=== PATIENT | female | born 1965 | race Caucasian/White ===

== ENCOUNTER → 2017-08-13 09:47 | Outpatient (CLI) | payer MEDICAID, SELFPAY | PROVIDERS: Family Provider Internal Medicine; PCP Internal Medicine; Visit Provider Anesthesiology | DX: Z53.9 Procedure and treatment not carried out, unspecified reason (principal) ==

== ENCOUNTER 2017-08-13 13:00 | Outpatient (RCR) | payer MEDICAID, SELFPAY ==
--- NOTE | 2017-08-07 17:40 | HP.PTEVAL_ITS ---
Patient's Visit Information GABRIEL SMITH is a 51 year old F referred to Physical Therapy by MD LANA Lopez with a diagnosis of LOW BACK PAIN. SACROCOCCYGEAL DISORDER. SACROILIAC JOINT PAIN.. Date of Evaluation: 08/07/17 Physical Therapist: Cristy Lara - Visit Plan Frequency: 2-3x /Week Duration: 4-6 Weeks Plan: POSTURE CORRECTION/STRENGTHENING, INSTRUCTION IN APPROPRIATE BODY MECHANICS AND ACTIVITY MODIFICATIONS. DLS STARTING WITH A NEUTRAL SPINE PROGRESSING ROM TOLERATED. NOEMY LE ROM, STRETCHING AND STRENGTHENING. HEP INSTRUCTION. - Subjective Subjective: Work/Leisure: UNEMPLOYEED. Disability: APPLYING. Present symptoms: NOEMY LOW BACK PAIN, RIGHT GROIN, RIGHT THIGH, RIGHT LEG. INTERMITTENT RIGHT FOOT TINGLING. Present since: Jul. Pain Scale: WORST 8/10, LEAST 4/10. Currently: 5/10. Commenced as a result of: FALL. FELL OFF THE SIDEWALK AT HOME. Symptoms at onset: LOW BACK. Worse: GOING UP AND DOWN STEPS, BENDING, LIFTING, WEIGHT BEARING ON RIGHT LE, BUMPING ANY PART OF HER BODY. Better: DISTRACTING YOURSELF. Disturbed sleep: YES. Previous history/Previous treatment: NO SIGNIFICANT HISTORY PROBLEMS PRIOR TO THE FALL. NO BACK SURGERY. NO BACK INJECTIONS. Coughing/sneezing/straining: POSITIVE. Gait: USING A WALKER SINCE THE DAY OF THE FALL. NO AD PRIOR. Difficulty initiating urinatin: NOT CURRENTLY. Accidents: HISTORY OF VARIOUS FALLS AND CONCUSSIONS. Unexplained weight loss: NO. Imaging: LUMBAR X-RAYS - NO FRACTURES PER PATIENT REPORT. PMH: MANIC DEPRESSIVE DISORDER, DEPRESSION, IRON DEFICIENCY ANEMIA, HYPOTHYROIDISM, B12 DEFICIENCY, C23 DISC HERNIATION, 2017 RIGHT SHOULDER SURGERY WITH UP TO 7/10 RIGHT SHOULDER PAIN, FIBROMYALGIA, IDDM. HAND DEFORMITIES. OTHER: PATIENT HAS A PAIN MGMT DOCTOR AND THEY ARE SEEKING APPROVAL FOR AN INJECTION. - Objective Sitting Posture: POOR. Standing Posture: POOR. Lordosis: REDUCED. Lateral shift: NO. Relevant shift: N/A. Active Correction of posture: WORSE. Other Observations: INDEP. Motor deficit: LLE STRENGTH 5/5 WITH MMT EXCEPT HIP 4/5. RIGHT LE: HIP 4-/5, KNEE 5/5, ANKLE 5/5. Sensory deficit: DECREASED LIGHT TOUCH SENSATION RIGHT LATERAL DISTAL LEG. ROM deficit: TIGHT NOEMY ANKLE GASTROC SOLEUS COMPLEX'S. TIGHT NOEMY HIP FLEXORS. Reflexes: 2/2 NOEMY LE'S. Dural Signs: POSITIVE RIGHT AND NEGATIVE LLE DURAL SIGNS. Lumbar mvmt loss: flex - NIL. ext - MOD. R SG - MIN. L SG - MIN. Core strength: POOR. Palpation: TENDERNESS WITH PALPATION OF THE LOWER LUMBAR SPINE, OVER THE SACRUM AND SI JOINT REGIONS. PATIENT IS RELUCTANT TO DO AQUATIC THERAPY. - Goals Goal 1:: DECREASE C/O BACK AND LE SX'S Goal Time Frame: 4-6 Weeks Goal 2:: IMPROVE PERSONAL CARE, LIFTING, WALKING, SITTING, STANDING, SLEEPING, SOCIAL LIFE, TRAVEL AND HOMEMAKING FUNCTION. Goal Time Frame: 4-6 Weeks Goal 3:: INSTRUCT IN PROPHYLAXIS Goal Time Frame: 4-6 Weeks - Rehabilitation Potential Rehabilitation Potential: Fair - Anticipated Interventions Patient/Client Instruction: Educate patient on: Condition, Plan of Care, Risk Factors, Benefits of Fitness Program For the Purpose of:: To improve self management Therapeutic Exercise to Include: Strength training, Body mechanics, Postural training, Flexibilty training, Gait and locomotor training, Dynamic Lumbar Stabilization For the Purpose of:: To improve ability of physical actions for home/community/ work/leisure, To improve gait and locomotor functions, To improve tolerance to ADL's TENS: Yes IF ES: Yes Cryotherapy (ice pack, ice massage): Yes Thermo therapy (hot pack): Yes Ultrasound (thermal/non thermal): Yes For the Purpose of:: To decrease pain, To decrease swelling/inflammation Thank you for the opportunity to evaluate your patient. For Medicare and Medicare HMO plans, please review the plan of care and approve it. It will need to be FAXED BACK to us at [phone] for Medicare purposes. Please let me know if there are questions or concerns regarding this plan of care. Physician Signature: Date:
--- NOTE | 2018-01-03 15:00 | HP.PTDCNRP_ITS ---
HP - Discharge Summary (1) - Patient Information GABRIEL SMITH was seen in my office for initial evaluation on 08/07/17. The following Plan of Care was established for this patient: Initial Frequency: 2-3x /Week Initial Duration: 4-6 Weeks - Anticipated Interventions Patient/Client Instruction: Educate patient on: Condition, Plan of Care, Risk Factors, Benefits of Fitness Program For the Purpose of:: To improve self management Therapeutic Exercise to Include: Strength training, Body mechanics, Postural training, Flexibilty training, Gait and locomotor training, Dynamic Lumbar Stabilization For the Purpose of:: To improve ability of physical actions for home/community/ work/leisure, To improve gait and locomotor functions, To improve tolerance to ADL's TENS: Yes IF ES: Yes Cryotherapy (ice pack, ice massage): Yes Thermo therapy (hot pack): Yes Ultrasound (thermal/non thermal): Yes For the Purpose of:: To decrease pain, To decrease swelling/inflammation This patient was last seen in our office . Pertinent comments regarding their Physical therapy will appear below: This patient has not returned to Physical Therapy and is appropriate to return to MD for further follow-up as needed. At this point I will be discontinuing this patient from physical therapy. I would be happy to see this patient again in the future if found appropriate by the physician. Thank you! Cristy Lara
== END 2017-08-13 19:00 | disposition home or self-care (01) ==
LOC: PT 13:00
PROVIDERS: Family Provider Internal Medicine; PCP Internal Medicine; Visit Provider Internal Medicine
DX: M54.5 Low back pain (principal); M53.3 Sacrococcygeal disorders, not elsewhere classified
CPT/HCPCS: 97014; 97035; 97110; 97162; 97530; G0283

== ENCOUNTER 2017-09-13 14:34 | Day surgery (SDC) | payer MEDICAID, SELFPAY ==
[2017-09-13] VITALS (7 sets, daily range): BP systolic 147–182; BP diastolic 78–96; PULSE 75–86; RESP 16; TEMP 36.3–36.8; O2SAT 98–100; BMI 33.7
[2017-09-13 15:21] LABS: Bedside Glucose 287 mg/dL (70-110)
--- NOTE | 2017-09-13 16:30 | RAD_ITS ---
STUDY: X-RAY - LUMBAR SPINE REASON FOR EXAM: Female, 51 years old. Cervical epidural. TECHNIQUE: Lateral coned-down view(s) of the lumbar spine was obtained. COMPARISON: None FINDINGS: Intraoperative imaging was provided for C4-C5 epidural block. RAD/Lumbar Spine 2 or 3 Views IMPRESSION: Intraoperative imaging. Electronically Signed: Marcial Valdez MD at 14:50 EST Tel [phone], Service support ,
[2017-09-13] MEDS: Triamcinolone Acetonide 40 MG/ML Vial (16:47)
--- NOTE | 2017-09-13 17:05 | PCM.DC ---
- Discharge Diagnoses Current Active Problems: Cervical spine pain due to cervical DDD Reason(s) for Visit for Discharge Instructions: Cervical neck pain You will use the following diet at home:: No restrictions Discharge Activity: Return to Normal Activity May resume sexual activity in: No Restrictions Call your doctor if your incision/area has: Increased Pain/ Swelling, Increased Redness Call your doctor if you observe: Numbness or Tingling Suture Line Care: Avoid Pulling/Pushing, Avoid Pinching/Bending Cleanse incision/area with: Soap & Water Allergies/Adverse Reactions: Allergies chlorhexidine Allergy (Verified 09/09/17 13:34) Rash pine tree sap Allergy (Uncoded 09/09/17 13:34) Unknown Medications to take at Discharge Cetirizine HCl [Zyrtec] 10 mg PO DAILY PRN 05/26/15 Gabapentin [Neurontin] 600 mg PO TID 05/26/15 Hydrocodone Bitart/Apap 5-325 [[place] 5/325] 1 - 2 tab PO Q4H PRN PRN #12 tab 05/26/15 Insulin Glargine [Lantus (BKC)] 22 units SC QHS 05/26/15 Insulin Lispro [Humalog] 8 unit SC TID 05/26/15 tramadol 50 mg tablet 50 mg PO TID tab 07/25/17 Cyanocobalamin (Vitamin B-12) [Vitamin B-12] 1,000 mcg PO DAILY 09/09/17 Docusate Sodium [Colace] 100 mg PO DAILY PRN PRN 09/09/17 Duloxetine HCl 60 mg PO QHS 09/09/17 Levothyroxine [Synthroid] 125 mcg PO DAILY 09/09/17 Primary Care Physician: Kristy Moreria MD [Primary Care Provider] - Please Follow Up With: Rick Willson MD
--- NOTE | 2017-09-13 17:22 | OP.PCM_ITS ---
Problem List (1) Other cervical disc degeneration at C4-C5 level Status: Acute (2) Other cervical disc degeneration at C4-C5 level Status: Acute (3) Disorder of intervertebral disc at C4-C5 level with radiculopathy Status: Acute (4) Disorder of intervertebral disc at C4-C5 level with radiculopathy Status: Acute (5) Radiculopathy of cervical region Status: Acute (6) Radiculopathy of cervical region Status: Acute Report of Operation Date of Procedure: 09/13/17 Pre-Operative Diagnosis: Cervical Degenerative disc disease and cevrical radiculopathy Post-Operative Diagnosis: same Surgery/Procedure Performed:: Cervical epidural steroid injection under fluoroscopy guidance at C4-5 level Description of Surgical Findings:: Under sterile conditions. Patient placed in the prone position, pressure points were padded, patient was ready from the nursing and the anesthesia team. After identification of the side and the target area for the block under guided fluoroscopy, the entry site was marked with marking pen. I used Betadine for sterilization of the skin, sterile draping were applied. Using 25-gauge needle to infiltrate the skin with local anesthesia using preservative-free lidocaine 0.5% injected 5 mL at site of entry. Using guided fluoroscopy, accessed the the posterior Cervical epidural space using 20-gauge Touhy needles under midline approach, accessed the site was assisted with lateral fluoroscopy, followed by using [id number] technique using preservative-free normal saline, negative aspiration of CSF and blood. Injected contrast solution [1.5] mL under live fluoroscopy which showed good spread of the contrast to the posterior epidural space and to the targeted area of the injection at[ C 4-5/ extended to C3-4 and down to C7-T1 area]. Injected [3] mL of mixture of preservative-free lidocaine 0.25 % and PF Normal saline and Kenalog [80] mg for the procedure which showed appropriate spread in the epidural space. [place] was removed, pressure dressing were applied. Patient tolerated the procedure well and was taken to the recovery. Type of Anesthesia:: Local MAC Special Medications: Kenalog , Lidocaine , Normal saline - Complications none
== END 2017-09-13 18:23 | disposition home or self-care (01) ==
LOC: SDC 14:34 → AC 14:37
PROVIDERS: Family Provider Internal Medicine; PCP Internal Medicine; Visit Provider Anesthesiology
PROC: 3E0S3BZ Introduction of Anesthetic Agent into Epidural Space, Percutaneous Approach (ICD-10-PCS; CPT 62320; principal; 2017-09-13 16:25)
DX: M50.121 Cervical disc disorder at C4-C5 level with radiculopathy (principal); M50.33 Other cervical disc degeneration, cervicothoracic region; M54.2 Cervicalgia; M75.41 Impingement syndrome of right shoulder; M25.511 Pain in right shoulder; M47.816 Spondylosis without myelopathy or radiculopathy, lumbar region; M54.40 Lumbago with sciatica, unspecified side; M51.36 Other intervertebral disc degeneration, lumbar region; M46.1 Sacroiliitis, not elsewhere classified; G89.4 Chronic pain syndrome; G56.00 Carpal tunnel syndrome, unspecified upper limb; M79.1 Myalgia; M19.019 Primary osteoarthritis, unspecified shoulder; E11.42 Type 2 diabetes mellitus with diabetic polyneuropathy; G63 Polyneuropathy in diseases classified elsewhere; I10 Essential (primary) hypertension; G43.909 Migraine, unspecified, not intractable, without status migrainosus; I34.1 Nonrheumatic mitral (valve) prolapse; S33.6XXA Sprain of sacroiliac joint, initial encounter; D50.9 Iron deficiency anemia, unspecified; D51.0 Vitamin B12 deficiency anemia due to intrinsic factor deficiency; E78.00 Pure hypercholesterolemia, unspecified; F41.9 Anxiety disorder, unspecified; F32.9 Major depressive disorder, single episode, unspecified; E06.9 Thyroiditis, unspecified; Z79.4 Long term (current) use of insulin; Z79.891 Long term (current) use of opiate analgesic; Z79.899 Other long term (current) drug therapy
CPT/HCPCS: 64490; 72100; 82962; J7120; J3490

== ENCOUNTER → 2017-12-06 17:16 | Outpatient (CLI) | payer MEDICAID, SELFPAY ==
[2017-12-06 18:24] LABS: Amphetamine Urine VISTA NEGATIVE (<1000 ng/mL); Barbiturate Urine VISTA NEGATIVE (< 200 ng/mL); Benzodiazepine Urine VISTA NEGATIVE (< 200 ng/mL); Cocaine Urine VISTA NEGATIVE (< 300 ng/mL); Ecstacy Urine VISTA NEGATIVE (< 500 ng/mL); Methadone Urine VISTA NEGATIVE (< 300 ng/mL); PCP Urine VISTA NEGATIVE (< 25 ng/mL); THC Urine VISTA NEGATIVE (< 50 ng/mL); Vista UDS pH Range 6
== END ==
PROVIDERS: Family Provider Internal Medicine; PCP Internal Medicine; Visit Provider Anesthesiology
DX: F11.20 Opioid dependence, uncomplicated (principal)
CPT/HCPCS: 80307

== ENCOUNTER → 2018-01-13 10:07 | Outpatient (CLI) | payer MEDICAID, SELFPAY ==
--- NOTE | 2018-01-13 10:37 | RAD_ITS ---
STUDY: X-RAY - LUMBAR SPINE REASON FOR EXAM: Female, 52 years old. Recent fall. Left lower back pain and pelvic pain. Now back pain radiating into the legs. TECHNIQUE: 3 view(s) of the lumbar spine were obtained. COMPARISON: Lumbar spine, February 15, 2017 FINDINGS: Normal lumbar lordosis. Very mild dextro scoliosis of the lumbar spine with convexity at L2-3. This appears unchanged. There is a normal alignment of the vertebrae. There is multilevel endplate spondylosis of the lumbar vertebrae. There is multi-level degenerative disc disease with multi-level disc space narrowing. There is no evidence of acute fracture or loss of vertebral axial height. There is atherosclerotic calcification of the abdominal aorta without a demonstrated aneurysm. RAD/Lumbar Spine 2 or 3 Views IMPRESSION: Stable degenerative changes of the lumbar spine. Electronically Signed: Emre Berry DO at 17:49 EDT Tel [phone], Service support ,
== END ==
PROVIDERS: Family Provider Internal Medicine; PCP Internal Medicine; Visit Provider Internal Medicine
DX: M54.5 Low back pain (principal); R10.2 Pelvic and perineal pain
CPT/HCPCS: 72100

== ENCOUNTER → 2018-01-23 17:03 | Outpatient (CLI) | payer MEDICAID, SELFPAY ==
--- NOTE | 2018-01-23 17:11 | RAD_ITS ---
STUDY: X-RAY - LEFT HAND REASON FOR EXAM: Female, 52 years old. Palmar fascial fibromatosis of fifth digit TECHNIQUE: 3 view(s) of the hand. COMPARISON: None. FINDINGS: Normal radiocarpal articulation. Normal distal radioulnar joint. Normal visualized carpal bones. Normal carpal articulations Normal carpometacarpal articulation of the thumb. Normal second through fifth carpometacarpal joints. Normal metacarpi. Normal metacarpophalangeal joint of the thumb. Normal interphalangeal joint of the thumb. Normal proximal and distal phalanges of the thumb. Normal metacarpophalangeal joints of the second through fifth fingers. Flexion at the proximal interphalangeal joint of fifth finger. Small cyst at the base of the middle phalanx of the second finger. The soft tissue structures are unremarkable. RAD/Hand Min 3 Views IMPRESSION: Flexion at the proximal interphalangeal joint of fifth finger. Small cyst at the base of the middle phalanx of the second finger. Electronically Signed: Donny Tavares DO at 21:58 EDT Tel [phone], Service support ,
== END ==
PROVIDERS: Family Provider Internal Medicine; PCP Internal Medicine; Visit Provider Surgery
DX: M72.0 Palmar fascial fibromatosis [Dupuytren] (principal)
CPT/HCPCS: 73130

== ENCOUNTER → 2018-02-14 13:39 | Outpatient (CLI) | payer MEDICAID, SELFPAY ==
[2018-02-14 15:57] LABS: Absolute Lymphocyte Count 2.14 X10^3/ul (0.83-4.51); Absolute Neutrophil Count 2.4 X10^3/uL (2.0-7.7); Basophil# 0.02 X10^3/uL; Basophil% 0.4 % (0-1); Eosinophil# 0.14 X10^3/uL; Eosinophils% 2.7 % (0-5); Hematocrit 38.2 % (37-47); Hemoglobin 12.4 g/dl (12.0-15.0); Lymphocyte # 2.14 X10^3/ul (4.0); Lymphocyte % 41.7 % (19-41); Mean Corp Hgb Conc 32.5 g/gl (32-36); Mean Corpuscular Volume 86.2 fL (81-99); Mean Platelet Vol. 10.5 fl (6.2-12.0); Monocyte# 0.45 X10^3/uL; Monocyte% 8.8 % (0-10); Neutrophil # 2.37 X10^3/uL (2.7-7.7); Neutrophil % 46.2 % (47-70); Platelet Count 294 K/mm3 (150-450); RBC Distribution Width CV 13.5 % (11.6-14.6); RBC Distribution Width SD 42.8 fl (35.1-43.9); Red Blood Count 4.43 M/mm3 (4.2-5.4); White Blood Count 5.1 K/mm3 (4.4-11.0)
[2018-02-14 16:01] LABS: POSITIVE COUNT NO; POSITIVE DIFFERENTIAL NO; POSITIVE MORPHOLOGY NO
[2018-02-14 16:26] LABS: ALB/GLOB Ratio 0.8 RATIO (0.9-2.4); AST(SGOT) 36 U/L (15-37); Alanine Aminotransfer ALT/SGPT 38 U/L (13-56); Albumin, Serum 3.3 g/dL (3.2-5.0); Alkaline Phosphatase 161 U/L (45-117); Anion Gap 9 (5-15); BUN 13 mg/dL (7-18); BUN/Creat Ratio 13.9 RATIO (10-20); Calcium,Total 8.9 mg/dL (8.5-10.1); Chloride 102 mmol/L (98-107); Cholesterol 410 mg/dL (200); Creatinine, Serum 0.94 mg/dL (0.55-1.02); EST Glomerular Filtration Rate 66 mL/min (>60); Est Glom Filt Rate - Afr Amer 80 mL/min (>60); Globulin 3.9 g/dL (2.2-4.2); Glucose 113 mg/dL (74-106); High Density Lipoprotein 52 mg/dL; Potassium 4.2 mmol/L (3.5-5.1); Protein, Total 7.2 g/dL (6.4-8.2); Sodium Level 140 mmol/L (136-145); T4 Free Direct 1.23 ng/dL (0.76-1.46); Thyroid Stim Hormone (TSH) 1.34 uIU/mL (0.358-3.74); Triglycerides 149 mg/dL; Very Low Density Lipoprotein 30 mg/dL (5-40)
[2018-02-14 16:31] LABS: Microalbumin:Creatinine Ratio 11.6 mg/g CRE (<30 mg/g CRE)
== END ==
PROVIDERS: Family Provider Internal Medicine; PCP Internal Medicine; Visit Provider Internal Medicine
DX: E78.5 Hyperlipidemia, unspecified (principal); E53.8 Deficiency of other specified B group vitamins; E10.9 Type 1 diabetes mellitus without complications; E03.9 Hypothyroidism, unspecified
CPT/HCPCS: 36415; 80053; 80061; 82043; 82570; 83036; 84439; 84443; 85025

== ENCOUNTER → 2018-05-09 17:22 | Outpatient (CLI) | payer MEDICAID, SELFPAY ==
[2018-05-09 18:17] LABS: Vitamin B12 410 pg/mL (211-911); Vitamin D,25 Hydroxy 18.1 ng/mL (29.95-100.01)
== END ==
PROVIDERS: Family Provider Internal Medicine; PCP Internal Medicine; Referring Provider Anesthesiology; Visit Provider Anesthesiology
DX: M79.10 Myalgia, unspecified site (principal)
CPT/HCPCS: 36415; 82306; 82607

== ENCOUNTER → 2018-10-03 13:47 | Outpatient (CLI) | payer MEDICAID, SELFPAY ==
[2018-04-15 10:21] VITALS: BMI 32.5
[2018-10-03 14:38] LABS: Amphetamine Urine VISTA NEGATIVE (<1000 ng/mL); Barbiturate Urine VISTA NEGATIVE (< 200 ng/mL); Benzodiazepine Urine VISTA NEGATIVE (< 200 ng/mL); Cocaine Urine VISTA NEGATIVE (< 300 ng/mL); Ecstacy Urine VISTA NEGATIVE (< 500 ng/mL); Methadone Urine VISTA NEGATIVE (< 300 ng/mL); PCP Urine VISTA NEGATIVE (< 25 ng/mL); THC Urine VISTA POSITIVE (< 50 ng/mL); Vista UDS pH Range 6
== END ==
PROVIDERS: Family Provider Internal Medicine; PCP Internal Medicine; Referring Provider Anesthesiology; Visit Provider Anesthesiology
DX: F11.20 Opioid dependence, uncomplicated (principal)
CPT/HCPCS: 80307

== ENCOUNTER → 2019-01-09 | Outpatient (CLI) | payer MEDICAID, SELFPAY ==
[2018-04-15 10:21] VITALS: BMI 32.5
[2019-01-09 13:32] LABS: Amphetamine Urine VISTA NEGATIVE (<1000 ng/mL); Barbiturate Urine VISTA NEGATIVE (< 200 ng/mL); Benzodiazepine Urine VISTA NEGATIVE (< 200 ng/mL); Cocaine Urine VISTA NEGATIVE (< 300 ng/mL); Ecstacy Urine VISTA NEGATIVE (< 500 ng/mL); Methadone Urine VISTA NEGATIVE (< 300 ng/mL); PCP Urine VISTA NEGATIVE (< 25 ng/mL); THC Urine VISTA NEGATIVE (< 50 ng/mL); Vista UDS pH Range 5
== END | disposition home or self-care (01) ==
LOC: LAB 12:58
PROVIDERS: Family Provider Internal Medicine; PCP Internal Medicine; Referring Provider Anesthesiology; Visit Provider Anesthesiology
DX: F11.20 Opioid dependence, uncomplicated (principal)
CPT/HCPCS: 80307

== ENCOUNTER → 2019-08-21 15:55 | Outpatient (CLI) | payer MEDICARE, SELFPAY ==
[2019-04-02 11:47] VITALS: BMI 32.5
[2019-08-21 17:05] LABS: Amphetamine Urine VISTA NEGATIVE (<1000 ng/mL); Barbiturate Urine VISTA NEGATIVE (< 200 ng/mL); Benzodiazepine Urine VISTA NEGATIVE (< 200 ng/mL); Cocaine Urine VISTA NEGATIVE (< 300 ng/mL); Ecstacy Urine VISTA NEGATIVE (< 500 ng/mL); Methadone Urine VISTA NEGATIVE (< 300 ng/mL); PCP Urine VISTA NEGATIVE (< 25 ng/mL); THC Urine VISTA NEGATIVE (< 50 ng/mL); Vista UDS pH Range 5
== END ==
PROVIDERS: PCP Internal Medicine; Referring Provider Anesthesiology; Visit Provider Anesthesiology
DX: F11.20 Opioid dependence, uncomplicated (principal)
CPT/HCPCS: 80307

== ENCOUNTER → 2020-05-27 17:52 | Outpatient (CLI) | payer MEDICARE, SELFPAY ==
[2019-04-02 11:47] VITALS: BMI 32.5
[2020-05-27 19:06] LABS: Amphetamine Urine VISTA NEGATIVE (<1000 ng/mL); Barbiturate Urine VISTA NEGATIVE (< 200 ng/mL); Benzodiazepine Urine VISTA NEGATIVE (< 200 ng/mL); Cocaine Urine VISTA NEGATIVE (< 300 ng/mL); Ecstacy Urine VISTA NEGATIVE (< 500 ng/mL); Methadone Urine VISTA NEGATIVE (< 300 ng/mL); PCP Urine VISTA NEGATIVE (< 25 ng/mL); THC Urine VISTA NEGATIVE (< 50 ng/mL); Vista UDS pH Range 6
== END ==
PROVIDERS: PCP Internal Medicine; Referring Provider Anesthesiology; Visit Provider Anesthesiology
DX: F11.20 Opioid dependence, uncomplicated (principal)
CPT/HCPCS: 80307

== ENCOUNTER → 2021-12-25 | Outpatient (CLI) | payer MEDICARE, SELFPAY ==
[2021-12-25 17:42] LABS: Amphetamine Urine VISTA NEGATIVE (<1000 ng/mL); Barbiturate Urine VISTA NEGATIVE (< 200 ng/mL); Benzodiazepine Urine VISTA NEGATIVE (< 200 ng/mL); Cocaine Urine VISTA NEGATIVE (< 300 ng/mL); Ecstacy Urine VISTA POSITIVE (< 500 ng/mL); Methadone Urine VISTA NEGATIVE (< 300 ng/mL); PCP Urine VISTA NEGATIVE (< 25 ng/mL); THC Urine VISTA NEGATIVE (< 50 ng/mL); Vista UDS pH Range 5
== END | disposition home or self-care (01) ==
PROVIDERS: PCP Internal Medicine; Referring Provider Anesthesiology Pain Medicine; Visit Provider Anesthesiology Pain Medicine
DX: F11.20 Opioid dependence, uncomplicated (principal)
CPT/HCPCS: 80307

== ENCOUNTER 2022-10-30 11:23 | Inpatient (IN) | payer MEDICARE, SELFPAY ==
[2022-10-30] VITALS (12 sets, daily range): BP systolic 140–177; BP diastolic 69–106; PULSE 80–114; RESP 15–18; TEMP 36.1–36.8; O2SAT 94–98; BMI 38.7; BMI 39.0
--- NOTE | 2022-10-30 11:29 | EKG12_ITS ---
Test Reason : CP Blood Pressure : / mmHG Vent. Rate : 095 BPM Atrial Rate : 095 BPM P-R Int : 166 ms QRS Dur : 094 ms QT Int : 332 ms P-R-T Axes : 046 075 106 degrees QTc Int : 417 ms Normal sinus rhythm Cannot rule out Anterior infarct , age undetermined Abnormal ECG Confirmed by KAREN PAUL, JOSLYN ([id number]), assistant editor CALOS REYES ([id number]) on 11/05/2022 9:46:14 AM Referred By: Maribel Moreno Confirmed By:JOSLYN JONES MD
--- NOTE | 2022-10-30 12:25 | RAD_ITS ---
STUDY: X-RAY CHEST REASON FOR EXAM: Female, 56 years old. Chest pain TECHNIQUE: Single AP portable view of the chest. COMPARISON: None. FINDINGS: The lungs are clear and expanded. There is no demonstrated pleural abnormality. Normal size heart. Normal mediastinum and shade. Normal visualized pulmonary arteries. There is atherosclerotic calcification of the aortic arch with tortuosity. Normal visualized thoracic spine. Normal visualized ribs, clavicles, and shoulders. There is no demonstrated abnormality of the visualized soft tissue structures of the upper abdomen. RAD/Chest 1 View (Portable) IMPRESSION: No acute abnormality is seen. Electronically Signed: Marcial Valdez MD at 12:37 EDT ,
[2022-10-30 12:28] LABS: Absolute Lymphocyte Count 1.85 X10^3/uL (0.83-4.51); Absolute Neutrophil Count 6.1 X10^3/uL (2.0-7.7); Basophil# 0.06 X10^3/uL; Basophil% 0.7 % (0-1); Eosinophil# 0.07 X10^3/uL; Eosinophils% 0.8 % (0-5); Hematocrit 37.6 % (37-47); Hemoglobin 12.5 g/dL (12.0-15.0); Lymphocyte # 1.85 X10^3/ul (0.83-4.51); Lymphocyte % 21.3 % (19-41); Mean Corp Hgb Conc 33.2 g/dL (32-36); Mean Corpuscular Hgb 28.7 pg (27.0-32.0); Mean Corpuscular Volume 86.4 fL (81-99); Mean Platelet Vol. 10.5 fl (6.2-12.0); Monocyte% 6.9 % (0-10); NRBC Flagged by Analyzer 0 % (0-5); Neutrophil # 6.07 X10^3/uL (2.7-7.7); Neutrophil % 70.1 % (47-70); Platelet Count 321 K/mm3 (150-450); RBC Distribution Width CV 14.1 % (11.6-14.6); RBC Distribution Width SD 44.4 fl (35.1-43.9); Red Blood Count 4.35 M/mm3 (4.2-5.4); White Blood Count 8.7 K/mm3 (4.4-11.0)
[2022-10-30 12:47] LABS: Anion Gap 5 (5-15); BUN 22 mg/dL (7-18); BUN/Creat Ratio 16.2 RATIO (10-20); Calcium,Total 9.2 mg/dL (8.5-10.1); Chloride 100 mmol/L (98-107); Creatinine, Serum 1.36 mg/dL (0.55-1.02); EST Glomerular Filtration Rate 43 mL/min (>60); Est Glom Filt Rate - Afr Amer 51 mL/min (>60); Estimated Creatinine Clearance 41.07 ml/min; Glucose 380 mg/dL (74-106); Potassium 4.3 mmol/L (3.5-5.1); Sodium Level 131 mmol/L (136-145); Troponin-I HS (w/2H Reflex) 6546 pg/mL (3.0-54.0)
[2022-10-30] MEDS: Heparin Injection (Vial) 5,000 UNIT/ML VIAL IV (13:23)
[2022-10-30] MEDS: Aspirin 81 MG TAB.CHEW 324 MG PO (13:23)
[2022-10-30] MEDS: HEPARIN/D5w 25,000 UNITS 25,000 UNITS/250 ML IV.SOLN. 10 UNITS CONT INF (13:23)
[2022-10-30] MEDS: 0.9% Normal Saline 1,000 ML 999 ML IV (13:26)
[2022-10-30 13:48] LABS: Prothrombin Time (Protime)PT. 13.3 SECONDS (11.7-14.9)
[2022-10-30 13:49] LABS: Partial Thromboplast Time 26.9 Seconds (24.1-36.2)
--- NOTE | 2022-10-30 14:53 | PCM.CONS.C ---
Documented by User: Cristela CHRISTIANSON, PA 10/30/22 16:48 Assessment & Plan Assessment/Plan (1) NSTEMI, initial episode of care: (2) Hypertension: QUALIFIERS: Hypertension type: essential hypertension Qualified Code(s): I10 - Essential (primary) hypertension (3) Hyperlipemia: QUALIFIERS: Hyperlipidemia type: unspecified Qualified Code(s): E78.5 - Hyperlipidemia, unspecified (4) Diabetes type I: QUALIFIERS: Diabetes mellitus complication status: with unspecified complications Qualified Code(s): E10.8 - Type 1 diabetes mellitus with unspecified complications HPI Consult Data Date of Consult: 10/30/22 HPI Narrative HPI Narrative: GABRIEL SMITH, is a 56 F who presented to [facility] ER for chest pain. Pt notes that she had left cateract surgery today. She was told that her monitor demonstrated Ventricular Bigeminy. She called her PCP and it was recommended that she present to the ER. EKG on presentations demonstrated SR with possible anteriorl ischemia. Her initial troponin was 6546, second troponin 6232. She notes she has been having chest pain that is substernal that radiates down to her left elbow, for several months. She felt that this was GI related. She notes that today on presentation she had CP that was a 4-5/10. Currently it is a 3/10. She notes that she has had more SOB with exertion and can not walk far. She notes that this has worsened over the last several months. She does have a history of hypertension, hyperlipidemia, type 1 diabetes, hypothyroidism. [facility]LY [facility] Medical History Anemia Arthritis Back problem Cataract Depression (emotion) Diabetes type I Frequent headaches Gallstones GERD (gastroesophageal reflux disease) Heart murmur, systolic Hives Hyperlipemia Hypertension Hypothyroidism IBS (irritable bowel syndrome) Neuropathy Osteoarthritis Seasonal allergies UTI (urinary tract infection) Vision problems Vitamin B12 deficiency Home Medications ferrous sulfate 325 mg (65 mg iron) tablet 325 mg PO DAILY SUPPLEMENT 10/31/17 [History Last Taken Unknown] tizanidine 4 mg capsule 4 mg PO Q6H SPASMS 10/31/17 [History Last Taken Unknown] fluticasone propionate 50 mcg/actuation nasal spray,suspension (Flonase Allergy Relief) 1 spray intranasal DAILY PRN ALLERGIES 11/26/17 [History Last Taken Unknown] gabapentin 300 mg capsule 300 mg PO DAILY NERVE PAIN 03/07/18 [History Last Taken 10/29/22] flash glucose scanning reader (Izooble Edgar 10 Day [place]) #1 ea 04/03/18 [Rx Last Taken Unknown] insulin glargine 100 unit/mL (3 mL) subcutaneous pen (Lantus Solostar U-100 Insulin) 30 unit subcut QHS DM 04/03/18 [History Last Taken 10/29/22] insulin lispro 100 unit/mL subcutaneous pen (Humalog KwikPen (U-100) Insulin) 8 unit subcut TID DM 04/03/18 [History Last Taken 10/30/22] promethazine 25 mg tablet 25 mg PO Q8H PRN Nausea 04/03/18 [History Last Taken Unknown] Vitamin Code 1 tab PO/SL DAILY SUPPLEMENT 10/30/22 [History Last Taken 10/30/22] alpha lipoic acid 600 mg tablet 600 mg PO QODAY SUPPLEMENT 10/30/22 [History Last Taken 10/28/22] amlodipine 10 mg tablet 10 mg PO DAILY BP 10/30/22 [History Last Taken 10/30/22] ascorbic acid (vitamin C) 500 mg tablet 500 mg PO DAILY PRN SUPPLEMENT 10/30/22 [History Last Taken 10/29/22] benfotiamine 150 mg capsule 150 mg PO DAILY SUPPLEMETN 10/30/22 [History Last Taken 10/29/22] bromfenac 0.075 % eye drops (BromSite) 1 drp LEFT EYE QHS EYE SURGERY 10/30/22 [History Last Taken 10/29/22] cetirizine 10 mg tablet 10 mg PO DAILY PRN ALLERGIES 10/30/22 [History Last Taken 10/29/22] cholecalciferol (vitamin D3) 125 mcg (5,000 unit) capsule 500 mcg PO DAILY SUPPLEMENT 10/30/22 [History Last Taken 10/29/22] levothyroxine 125 mcg tablet 125 mcg PO DAILY THYROID 10/30/22 [History Last Taken 10/30/22] losartan 50 mg tablet 50 mg PO DAILY BP 10/30/22 [History Last Taken 10/29/22] melatonin 5 mg tablet 10 mg PO QHS SLEEP 10/30/22 [History Last Taken 10/29/22] ofloxacin 0.3 % eye drops 1 drp LEFT EYE 4X/DAY EYE SURGERY 10/30/22 [History Last Taken 10/30/22] polyethylene glycol 3350 17 gram/dose oral powder (Miralax) 17 g PO DAILY PRN Constipation 10/30/22 [History Last Taken 10/27/22] sucralfate 1 gram tablet 1 g PO DAILY PRN Stomach Upset 10/30/22 [History Last Taken 10/29/22] vitamin K2 100 mcg capsule 200 mcg PO DAILY SUPPLEMENT 10/30/22 [History Last Taken 10/29/22] Allergy/AdvReac Type Severity Reaction Status Date / Time chlorhexidine Allergy Rash Verified 10/30/22 11:26 Environmental Allergies: Allergy NEEDS Verified 10/30/22 11:26 Uncoded FOLLOW-UP [gregorio] Family History Mother Diabetes Anemia Asthma Bleeding disorder History of blood transfusion History of blood clots Depression Heart disease Hypertension High cholesterol Respiratory disease Hyperthyroidism Grandmother Depression Surgical History History of shoulder surgery Social History Smoking Status: Never smoker alcohol intake: current alcohol intake frequency: holidays/special occasions only substance use type: does not use what type of physical activity do you participate in: none seatbelt use: always additional social history: DOES NOT USE ASPIRIN ROS Constitutional Constitutional: Reports as per HPI and fatigue Eyes Eyes: Reports other Details: left cataract surgery Cardiovascular Cardiovascular: Reports as per HPI Respiratory/Chest Respiratory/Chest: Reports shortness of breath at rest and shortness of breath with exertion; Denies cough Gastrointestinal Gastrointestinal: Reports belching, heartburn and nausea; Denies hematemesis or melena Musculoskeletal Musculoskeletal: Reports other Details: needs to walk with a cane Physical Exam Const alert, oriented x3 and no apparent distress HEENT normocephalic, head/scalp atraumatic, hearing grossly normal bilaterally, external ears normal, external nose normal and moist oral mucous membranes Eyes PERRL, EOMs intact bilaterally, conjunctivae normal and no scleral icterus Neck no lymphadenopathy, supple and no JVD Resp Auscultation: clear to auscultation bilaterally Cardio regular rate, regular rhythm, S1 normal heart sound, S2 normal heart sound, no rub, no gallops, no clicks, no JVD and peripheral pulses 2+ throughout Heart Sounds: murmur systolic III/ harsh holo GI normal to inspection, nondistended, normoactive bowel sounds, soft to palpation, non-tender and non-distended Extremity normal to inspection, normal capillary refill, no clubbing, cyanosis or edema and no pedal edema Neuro oriented x3, CN's II-XII intact bilaterally, moves all extremities and no focal motor deficits Psych cooperative and affect normal Psych Narrative: tearful, anxious Risk Stratification Risk Stratification Applicable: Yes Age >/= 65: No >/= 3 CAD Risk Factors (HTN, HLD, DM, family hx of CAD, or current smoker): Yes Aspirin Use in the Past 7 Days: No Severe Angina (>/= episodes in 24 hours): Yes EKG ST Changes >/= 0.5mm: No Positive Cardiac Marker: Yes ALAINA Risk Stratification Score: 3 ALAINA % Risk: 13% Risk Charges/Coding Visit Charges Office Visits / Consults: 82593 IP Consult L4 Objective Data Vital Signs: Vital Signs Temp Pulse Resp BP Pulse Ox O2 Del Method 97 F L 103 H 18 157/81 H 97 Room Air 10/30/22 11:24 10/30/22 14:24 10/30/22 14:24 10/30/22 14:24 10/30/22 14:24 10/30/22 14:24 Oxygen Delivery Method Room Air Weight: 233 lb Body Mass Index (BMI) 38.7 Lab / Micro Data Result Diagrams: 10/30/22 12:05 10/30/22 12:05 Labs: Laboratory Results - last 24 hr 10/30/22 12:05: WBC 8.7, RBC 4.35, Hgb 12.5, Hct 37.6, MCV 86.4, MCH 28.7, MCHC 33.2, RDW Std Deviation 44.4 H, RDW Coeff of Robyn 14.1, Plt Count 321, MPV 10.5, Immature Gran % (Auto) 0.200, Neut % (Auto) 70.1 H, Lymph % (Auto) 21.3, [place] % (Auto) 6.9, Eos % (Auto) 0.8, Baso % (Auto) 0.7, Absolute Neuts (auto) 6.1, Absolute Lymphs (auto) 1.85, Nucleated RBC % 0 10/30/22 12:05: Sodium 131 L, Potassium 4.3, Chloride 100, Carbon Dioxide 26.0, Anion Gap 5, BUN 22 H, Creatinine 1.36 H, Estim Creat Clear Calc 41.07, Est GFR (MDRD) Af Amer 51 L, Est GFR (MDRD) Non-Af 43 L, BUN/Creatinine Ratio 16.2, Glucose 380 H, Calcium 9.2, Troponin I High Sens 6546 H* 10/30/22 13:19: PT 13.3, INR 1.0, APTT 26.9 Cardiology Labs/Tests 10/30/22 12:05: WBC 8.7, RBC 4.35, Hgb 12.5, Hct 37.6, MCV 86.4, MCH 28.7, MCHC 33.2, Plt Count 321, MPV 10.5, Immature Gran % (Auto) 0.200, Neut % (Auto) 70.1 H, Lymph % (Auto) 21.3, [place] % (Auto) 6.9, Eos % (Auto) 0.8, Baso % (Auto) 0.7, Absolute Neuts (auto) 6.1, Nucleated RBC % 0 10/30/22 12:05: Sodium 131 L, Potassium 4.3, Chloride 100, Carbon Dioxide 26.0, Anion Gap 5, BUN 22 H, Creatinine 1.36 H, Est GFR (MDRD) Af Amer 51 L, Est GFR (MDRD) Non-Af 43 L, BUN/Creatinine Ratio 16.2, Glucose 380 H, Calcium 9.2 10/30/22 13:19: PT 13.3, INR 1.0, APTT 26.9 Radiography Diagnostic Testing: Radiology Impression Chest X-Ray 10/30/22 12:25 IMPRESSION: No acute abnormality is seen. Electronically Signed: Marcial Valdez MD at 12:37 EDT , Documented by User: Dr. Maribel Moreno MD 10/30/22 17:18 Assessment & Plan Assessment/Plan (1) NSTEMI, initial episode of care: (2) Hypertension: QUALIFIERS: Hypertension type: essential hypertension Qualified Code(s): I10 - Essential (primary) hypertension (3) Hyperlipemia: QUALIFIERS: Hyperlipidemia type: unspecified Qualified Code(s): E78.5 - Hyperlipidemia, unspecified (4) Diabetes type I: QUALIFIERS: Diabetes mellitus complication status: with unspecified complications Qualified Code(s): E10.8 - Type 1 diabetes mellitus with unspecified complications PLAN: Plan I independently examined this patient at bedside along with the midlevel and the nursing staff She had symptoms of chest pain Underwent cataract surgery today and was brought into the ER because she had some ventricular bigeminy In the EKG she had change in the EKG in the anteroseptal with significant elevation of cardiac biomarker with high sensitive troponin Cardiac care plan recommendations; I reviewed and discussed all the current medication Patient also has a history of anxiety disorder and hypertension. And radiculopathy at the level of C4/C5 We will continue current medical treatment for CAD/non-STEMI We reviewed echocardiogram in a.m. We will proceed with cardiac catheterization/right radial artery approach HPI Consult Data Date of Consult: 10/30/22 HPI Narrative Reason for Consultation: Non-STEMI FOR[facility]LY [facility] Medical History Anemia Arthritis Back problem Cataract Depression (emotion) Diabetes type I Frequent headaches Gallstones GERD (gastroesophageal reflux disease) Heart murmur, systolic Hives Hyperlipemia Hypertension Hypothyroidism IBS (irritable bowel syndrome) Neuropathy Osteoarthritis Seasonal allergies UTI (urinary tract infection) Vision problems Vitamin B12 deficiency Home Medications ferrous sulfate 325 mg (65 mg iron) tablet 325 mg PO DAILY SUPPLEMENT 10/31/17 [History Last Taken Unknown] tizanidine 4 mg capsule 4 mg PO Q6H SPASMS 10/31/17 [History Last Taken Unknown] fluticasone propionate 50 mcg/actuation nasal spray,suspension (Flonase Allergy Relief) 1 spray intranasal DAILY PRN ALLERGIES 11/26/17 [History Last Taken Unknown] gabapentin 300 mg capsule 300 mg PO DAILY NERVE PAIN 03/07/18 [History Last Taken 10/29/22] flash glucose scanning reader (Izooble Edgar 10 Day [place]) #1 ea 04/03/18 [Rx Last Taken Unknown] insulin glargine 100 unit/mL (3 mL) subcutaneous pen (Lantus Solostar U-100 Insulin) 30 unit subcut QHS DM 04/03/18 [History Last Taken 10/29/22] insulin lispro 100 unit/mL subcutaneous pen (Humalog KwikPen (U-100) Insulin) 8 unit subcut TID DM 04/03/18 [History Last Taken 10/30/22] promethazine 25 mg tablet 25 mg PO Q8H PRN Nausea 04/03/18 [History Last Taken Unknown] Vitamin Code 1 tab PO/SL DAILY SUPPLEMENT 10/30/22 [History Last Taken 10/30/22] alpha lipoic acid 600 mg tablet 600 mg PO QODAY SUPPLEMENT 10/30/22 [History Last Taken 10/28/22] amlodipine 10 mg tablet 10 mg PO DAILY BP 10/30/22 [History Last Taken 10/30/22] ascorbic acid (vitamin C) 500 mg tablet 500 mg PO DAILY PRN SUPPLEMENT 10/30/22 [History Last Taken 10/29/22] benfotiamine 150 mg capsule 150 mg PO DAILY SUPPLEMETN 10/30/22 [History Last Taken 10/29/22] bromfenac 0.075 % eye drops (BromSite) 1 drp LEFT EYE QHS EYE SURGERY 10/30/22 [History Last Taken 10/29/22] cetirizine 10 mg tablet 10 mg PO DAILY PRN ALLERGIES 10/30/22 [History Last Taken 10/29/22] cholecalciferol (vitamin D3) 125 mcg (5,000 unit) capsule 500 mcg PO DAILY SUPPLEMENT 10/30/22 [History Last Taken 10/29/22] levothyroxine 125 mcg tablet 125 mcg PO DAILY THYROID 10/30/22 [History Last Taken 10/30/22] losartan 50 mg tablet 50 mg PO DAILY BP 10/30/22 [History Last Taken 10/29/22] melatonin 5 mg tablet 10 mg PO QHS SLEEP 10/30/22 [History Last Taken 10/29/22] ofloxacin 0.3 % eye drops 1 drp LEFT EYE 4X/DAY EYE SURGERY 10/30/22 [History Last Taken 10/30/22] polyethylene glycol 3350 17 gram/dose oral powder (Miralax) 17 g PO DAILY PRN Constipation 10/30/22 [History Last Taken 10/27/22] sucralfate 1 gram tablet 1 g PO DAILY PRN Stomach Upset 10/30/22 [History Last Taken 10/29/22] vitamin K2 100 mcg capsule 200 mcg PO DAILY SUPPLEMENT 10/30/22 [History Last Taken 10/29/22] Allergy/AdvReac Type Severity Reaction Status Date / Time chlorhexidine Allergy Rash Verified 10/30/22 11:26 Environmental Allergies: Allergy NEEDS Verified 10/30/22 11:26 Uncoded FOLLOW-UP [pine] Family History Mother Diabetes Anemia Asthma Bleeding disorder History of blood transfusion History of blood clots Depression Heart disease Hypertension High cholesterol Respiratory disease Hyperthyroidism Grandmother Depression Surgical History History of shoulder surgery Social History Smoking Status: Never smoker alcohol intake: current alcohol intake frequency: holidays/special occasions only substance use type: does not use what type of physical activity do you participate in: none seatbelt use: always additional social history: DOES NOT USE ASPIRIN Risk Stratification Age >/= 65: No ALAINA Risk Stratification Score: 3 ALAINA % Risk: 13% Risk Lab / Micro Data Result Diagrams: 10/30/22 12:05 10/30/22 12:05
--- NOTE | 2022-10-30 15:06 | ED.RN ---
called lab to inquire about troponin order
--- NOTE | 2022-10-30 15:34 | ED.RN ---
[place] pharmacy affairs assistant working on med list.
--- NOTE | 2022-10-30 15:38 | ECHOCS_ITS ---
Reason For Study: CP Procedure This was a 2D Doppler, Color Flow transthoracic echocardiogram. The study was technically difficult. Contrast injection was performed. Exam performed portable in patient room. Left Ventricle Mildly dilated left ventricle. The estimated ejection fraction is 30-35 %. Atria Normal left atrium. Normal right atrium. Mitral Valve The mitral valve is structurally normal. No prolapse or stenosis seen. Mild-Moderate (1-2+) mitral valve insufficiency. Tricuspid Valve Normal tricuspid valve. Mild tricuspid valve insufficiency. Aortic Valve Normal aortic valve. Pulmonic Valve The pulmonic valve is not well visualized. Great Vessels Normal aortic root. Pericardium/Pleural No pericardial effusion. Medication Diluted definity 3ml given slow IV push to enhance endocardial definition. MMode/2D Measurements & Calculations LVIDd: 5.3 cm IVSd: 1.0 cm Ao root diam: 2.7 cm LVIDs: 3.6 cm LVPWd: 1.0 cm LA dimension: 4.3 cm RVDd: 2.9 cm FS: 32.3 % LAV(MOD-bp): 50.5 ml LVAd ap4: 36.0 cm2 SV(MOD-sp4): 36.0 ml LAV(MOD-bp) Indexed: 23.9 ml/m2 LVLd ap4: 9.0 cm LAV(MOD-sp2): 36.7 ml EDV(MOD-sp4): 117.4 ml LAV(MOD-sp4): 46.3 ml EDV(sp4-el): 122.8 ml LVAs ap4: 28.9 cm2 LVLs ap4: 8.3 cm ESV(MOD-sp4): 81.4 ml ESV(sp4-el): 85.4 ml EF(MOD-sp4): 30.7 % EF(sp4-el): 30.4 % SV(sp4-el): 37.4 ml LA A4 area: 17.7 cm2 Time Measurements MV dec time: 0.19 sec Doppler Measurements & Calculations MV E max liam: 103.8 cm/sec Lat Peak E' Liam: 5.9 cm/sec Med Peak E' Liam: 7.1 cm/sec MV A max liam: 87.6 cm/sec E/E' lat: 17.7 E/E' med: 14.6 MV E/A: 1.2 MV V2 max: 142.8 cm/sec MV P1/2t max liam: 143.9 cm/sec Ao V2 max: 102.9 cm/sec MV max P.2 mmHg MV P1/2t: 66.7 msec Ao max P.2 mmHg MV V2 mean: 74.6 cm/sec MV mean P.7 mmHg MV dec slope: 632.0 cm/sec2 MV V2 VTI: 30.8 cm MVA(P1/2t): 3.3 cm2 LV V1 max: 88.0 cm/sec MR max liam: 579.1 cm/sec PA V2 max: 69.4 cm/sec LV V1 max P.1 mmHg MR max P.1 mmHg MR mean liam: 428.9 cm/sec MR mean P.5 mmHg MR VTI: 186.2 cm TR max liam: 278.1 cm/sec TR max P.9 mmHg ECHO/Echo Complete W/ Contrast Interpretation Summary The estimated ejection fraction is 30-35 %. Reduced LV systolic function in comparison to previous echocardiogram. Anteroapical and distal septal hypokinesia Ordering Physician: Dolly Moreira Referring Physician: Maribel Moreno Performed By: Amos Stephen RCS
--- NOTE | 2022-10-30 15:45 | EKG12_ITS ---
Test Reason : Blood Pressure : / mmHG Vent. Rate : 104 BPM Atrial Rate : 104 BPM P-R Int : 166 ms QRS Dur : 096 ms QT Int : 324 ms P-R-T Axes : 058 098 -04 degrees QTc Int : 426 ms Sinus tachycardia Rightward axis Cannot rule out Anterior infarct , age undetermined Abnormal ECG When compared with ECG of 30-OCT-2022 11:33, MANUAL COMPARISON REQUIRED, DATA IS UNCONFIRMED Confirmed by KAREN PAUL, JOSLYN ([id number]), purchasing expeditor CALOS REYES ([id number]) on 11/01/2022 7:54:02 AM Referred By: Maribel Moreno Confirmed By:JOSLYN JONES MD
[2022-10-30 15:52] LABS: Troponin-I HS 6232 pg/mL (3.0-54.0)
--- NOTE | 2022-10-30 16:03 | ED.VIS.CHEST ---
HPI History of Present Illness Chief Complaint: Chest Pain Narrative Narrative: 56-year-old female with chest pain. She states that she has been having these intermittent episodes of what she thinks is gastric reflux. Last night she states that it was very severe from 10 PM to about 7 to 8 AM this morning. She was scheduled for eye surgery with Dr. Easton to have her left cataract removed. Patient has a eye shield in place. Patient states they noted something in the OR about her heart rhythm. Patient came to the ED for evaluation. She denies history of cardiac disease. She is not actively having chest pain now. [facility] Medical History Anemia Arthritis Back problem Cataract Depression (emotion) Diabetes type I Frequent headaches Gallstones GERD (gastroesophageal reflux disease) Heart murmur, systolic Hives Hyperlipemia Hypertension Hypothyroidism IBS (irritable bowel syndrome) Neuropathy Osteoarthritis Seasonal allergies UTI (urinary tract infection) Vision problems Vitamin B12 deficiency Home Medications ferrous sulfate 325 mg (65 mg iron) tablet 325 mg PO DAILY SUPPLEMENT 10/31/17 [History Last Taken Unknown] tizanidine 4 mg capsule 4 mg PO Q6H SPASMS 10/31/17 [History Last Taken Unknown] fluticasone propionate 50 mcg/actuation nasal spray,suspension (Flonase Allergy Relief) 1 spray intranasal DAILY PRN ALLERGIES 11/26/17 [History Last Taken Unknown] gabapentin 300 mg capsule 300 mg PO DAILY NERVE PAIN 03/07/18 [History Last Taken 10/29/22] flash glucose scanning reader ([employer] 10 Day [place]) #1 ea 04/03/18 [Rx Last Taken Unknown] insulin glargine 100 unit/mL (3 mL) subcutaneous pen (Lantus Solostar U-100 Insulin) 30 unit subcut QHS DM 04/03/18 [History Last Taken 10/29/22] insulin lispro 100 unit/mL subcutaneous pen (Humalog KwikPen (U-100) Insulin) 8 unit subcut TID DM 04/03/18 [History Last Taken 10/30/22] promethazine 25 mg tablet 25 mg PO Q8H PRN Nausea 04/03/18 [History Last Taken Unknown] Vitamin Code 1 tab PO/SL DAILY SUPPLEMENT 10/30/22 [History Last Taken 10/30/22] alpha lipoic acid 600 mg tablet 600 mg PO QODAY SUPPLEMENT 10/30/22 [History Last Taken 10/28/22] amlodipine 10 mg tablet 10 mg PO DAILY BP 10/30/22 [History Last Taken 10/30/22] ascorbic acid (vitamin C) 500 mg tablet 500 mg PO DAILY PRN SUPPLEMENT 10/30/22 [History Last Taken 10/29/22] benfotiamine 150 mg capsule 150 mg PO DAILY SUPPLEMETN 10/30/22 [History Last Taken 10/29/22] bromfenac 0.075 % eye drops (BromSite) 1 drp LEFT EYE QHS EYE SURGERY 10/30/22 [History Last Taken 10/29/22] cetirizine 10 mg tablet 10 mg PO DAILY PRN ALLERGIES 10/30/22 [History Last Taken 10/29/22] cholecalciferol (vitamin D3) 125 mcg (5,000 unit) capsule 500 mcg PO DAILY SUPPLEMENT 10/30/22 [History Last Taken 10/29/22] levothyroxine 125 mcg tablet 125 mcg PO DAILY THYROID 10/30/22 [History Last Taken 10/30/22] losartan 50 mg tablet 50 mg PO DAILY BP 10/30/22 [History Last Taken 10/29/22] melatonin 5 mg tablet 10 mg PO QHS SLEEP 10/30/22 [History Last Taken 10/29/22] ofloxacin 0.3 % eye drops 1 drp LEFT EYE 4X/DAY EYE SURGERY 10/30/22 [History Last Taken 10/30/22] polyethylene glycol 3350 17 gram/dose oral powder (Miralax) 17 g PO DAILY PRN Constipation 10/30/22 [History Last Taken 10/27/22] sucralfate 1 gram tablet 1 g PO DAILY PRN Stomach Upset 10/30/22 [History Last Taken 10/29/22] vitamin K2 100 mcg capsule 200 mcg PO DAILY SUPPLEMENT 10/30/22 [History Last Taken 10/29/22] Allergy/AdvReac Type Severity Reaction Status Date / Time chlorhexidine Allergy Rash Verified 10/30/22 11:26 Environmental Allergies: Allergy NEEDS Verified 10/30/22 11:26 Uncoded FOLLOW-UP [pine] Family History Mother Diabetes Anemia Asthma Bleeding disorder History of blood transfusion History of blood clots Depression Heart disease Hypertension High cholesterol Respiratory disease Hyperthyroidism Grandmother Depression Surgical History History of shoulder surgery Social History Smoking Status: Never smoker alcohol intake: current alcohol intake frequency: holidays/special occasions only substance use type: does not use what type of physical activity do you participate in: none seatbelt use: always additional social history: DOES NOT USE ASPIRIN ROS ROS ED Review of Systems ROS Unobtainable: Denies due to encephalopathy Constitutional Constitutional ED: Denies chills or fever(s) Eyes Eyes: Denies blurry vision or change in vision ENT ENT ED: Denies rhinorrhea or sore throat Cardiovascular Cardiovascular: Reports as per HPI Respiratory/Chest Respiratory/Chest: Denies cough or dyspnea Gastrointestinal Gastrointestinal: Denies abdominal pain Genitourinary Genitourinary ED: Denies dysuria or hematuria Musculoskeletal Musculoskeletal: Denies arthralgias or back pain Integumentary Denies abscess Neurologic Neurologic: Denies headache(s) or paresthesias Psychiatric Psychiatric: Denies anxiety or depression EXAM Physical Exam Const Vital Signs: 10/30/22 11:24 10/30/22 12:59 10/30/22 14:24 Temperature 97 F L Temperature Source Temporal Pulse Rate 107 H 104 H 103 H Respiratory Rate 18 18 18 Blood Pressure 148/71 H 168/95 H 157/81 H Blood Pressure Mean 96 119 106 Pulse Ox 98 98 97 Oxygen Delivery Method Room Air Room Air Room Air 10/30/22 14:55 Temperature 97 F L Temperature Source Temporal Pulse Rate 97 Respiratory Rate 17 Blood Pressure 168/84 H Blood Pressure Mean 112 Pulse Ox 98 Oxygen Delivery Method Room Air Positive well nourished General Appearance ED: NAD; Negative for pallor HEENT Reports moist mucous membranes Eyes PERRL and EOMs intact bilaterally Chest Wall inspection of chest normal Resp normal respiratory effort and clear to auscultation bilaterally Auscultation: Negative for rales, rhonchi or wheezes Cardio regular rate and regular rhythm Extremity normal to inspection Neuro oriented x3 and CN's II-XII intact bilaterally Psych mental status grossly normal Skin no rashes or lesions noted General Skin Exam: Negative for jaundice or pallor Heart Score History: Highly Suspicious ECG: Normal Age: >45 - <65 years Risk Factors: >/= 3 Risk Factors or History of CAD Troponin: >/=3 x Normal Limit Score: 7 MDM MDM MDM Narrative Medical decision making narrative: Patient presenting with chest pain which lasted for several hours last evening. It is currently resolved. I suspect by her description that she likely infarcted. Differential includes ACS, CHF, pneumonia, GERD, gastritis, peptic ulcer disease. EKG on my interpretation shows a sinus rhythm with a ventricular of 95 bpm without sign of ischemic change or dysrhythmia. Chest x-ray on my interpretation is no acute cardiopulmonary process. Radiologist are present and agrees. CBC shows normal white blood cell count, hemoglobin stable. Platelets are normal. PT/INR normal. Creatinine slightly elevated 1.36. Patient was given a liter of normal saline. High-sensitivity troponin came back at 6546. At this point patient was started on heparin drip and given aspirin 324 mg. Discussed with cardiology recommended admission and heparin. Patient discussed with the hospitalist and admitted in stable condition. Repeat troponin came back lower at 6232. I did speak with Dr. Bellamy regarding heparin with the patient's eye surgery today and he stated that it was not an absolute contraindication. He recommended keeping the eye shield in place. Nobody is to touch the eye. He recommended keeping the ofloxacin dosing the same every 6 hours. He states that likely somebody will come see her in the hospital tomorrow to reevaluate the eye. Impression: 1. NSTEMI Lab Data Labs: Laboratory Results - last 24 hr 10/30/22 10/30/22 10/30/22 12:05 12:05 13:19 WBC 8.7 RBC 4.35 Hgb 12.5 Hct 37.6 MCV 86.4 MCH 28.7 MCHC 33.2 RDW Std Deviation 44.4 H RDW Coeff of Robyn 14.1 Plt Count 321 MPV 10.5 Immature Gran % (Auto) 0.200 Neut % (Auto) 70.1 H Lymph % (Auto) 21.3 [place] % (Auto) 6.9 Eos % (Auto) 0.8 Baso % (Auto) 0.7 Absolute Neuts (auto) 6.1 Absolute Lymphs (auto) 1.85 Nucleated RBC % 0 PT 13.3 INR 1.0 APTT 26.9 Sodium 131 L Potassium 4.3 Chloride 100 Carbon Dioxide 26.0 Anion Gap 5 BUN 22 H Creatinine 1.36 H Estim Creat Clear Calc 41.07 Est GFR (MDRD) Af Amer 51 L Est GFR (MDRD) Non-Af 43 L BUN/Creatinine Ratio 16.2 Glucose 380 H Calcium 9.2 Troponin I High Sens 6546 H* 10/30/22 14:20 WBC RBC Hgb Hct MCV MCH MCHC RDW Std Deviation RDW Coeff of Robyn Plt Count MPV Immature Gran % (Auto) Neut % (Auto) Lymph % (Auto) [place] % (Auto) Eos % (Auto) Baso % (Auto) Absolute Neuts (auto) Absolute Lymphs (auto) Nucleated RBC % PT INR APTT Sodium Potassium Chloride Carbon Dioxide Anion Gap BUN Creatinine Estim Creat Clear Calc Est GFR (MDRD) Af Amer Est GFR (MDRD) Non-Af BUN/Creatinine Ratio Glucose Calcium Troponin I High Sens 6232 H* Radiography Diagnostic Testing: Clinical Impression(s) from Imaging Studies Chest X-Ray 10/30/22 12:25 IMPRESSION: No acute abnormality is seen. Electronically Signed: Marcial Valdez MD at 12:37 EDT , Discharge Plan Disposition Disposition: Acute Care Hospital [facility] Discharge Date/Time: 10/30/22 15:35
[2022-10-30] MEDS: Nitroglycerin (INPATIENT USE) 0.4 MG TAB.SUBL SL ×3 (16:42→17:07)
[2022-10-30 16:45] LABS: Bedside Glucose 343 mg/dL (74-106)
[2022-10-30] MEDS: Carvedilol 12.5 MG Tablet PO (18:16)
[2022-10-30] MEDS: tiZANidine HCl 2 MG Tablet 4 MG PO ×2 (18:16→21:38)
[2022-10-30 19:16] LABS: Troponin-I HS 5661 pg/mL (3.0-54.0)
[2022-10-30 20:06] LABS: Partial Thromboplast Time 56.9 Seconds (24.1-36.2)
--- NOTE | 2022-10-30 21:24 | PCM.HP.STD ---
[facility] - General General Date of Admission: 10/30/22 Date of Service: 10/30/22 Chief Complaint: Chest pain HPI Narrative GABRIEL SMITH, is a 56 F with a history of type 2 diabetes and who today underwent cataract surgery in the left eye. Patient presenting to the hospital with several months history of substernal chest pain which the patient attributed to GERD and had been using the [id number] PPI (omeprazole) with improvement in symptoms. However for the last 1 week has been having worsening of substernal chest pain with occasional radiation to the left upper arm and with the omeprazole no longer being helpful. Chest pain had usually tolerable, however for the last several days has been more severe. Patient actually went into eye surgery with these symptoms and did not report them to her stubber. Reported it after surgery and she was promptly sent to the emergency department. Troponin noted to be markedly elevated at 6546. Patient was given nitroglycerin with improvement in symptoms and has since been placed on a heparin drip. EKG remains normal sinus rhythm. Blood pressure noted to be elevated as well. [facility] Medical History Anemia Arthritis Back problem Cataract Depression (emotion) Diabetes type I Frequent headaches Gallstones GERD (gastroesophageal reflux disease) Heart murmur, systolic Hives Hyperlipemia Hypertension Hypothyroidism IBS (irritable bowel syndrome) Neuropathy Osteoarthritis Seasonal allergies UTI (urinary tract infection) Vision problems Vitamin B12 deficiency Home Medications ferrous sulfate 325 mg (65 mg iron) tablet 325 mg PO DAILY SUPPLEMENT 10/31/17 [History Last Taken Unknown] tizanidine 4 mg capsule 4 mg PO Q6H SPASMS 10/31/17 [History Last Taken Unknown] fluticasone propionate 50 mcg/actuation nasal spray,suspension (Flonase Allergy Relief) 1 spray intranasal DAILY PRN ALLERGIES 11/26/17 [History Last Taken Unknown] gabapentin 300 mg capsule 300 mg PO DAILY NERVE PAIN 03/07/18 [History Last Taken 10/29/22] flash glucose scanning reader ([employer] [place] 10 Day [place]) #1 ea 04/03/18 [Rx Last Taken Unknown] insulin glargine 100 unit/mL (3 mL) subcutaneous pen (Lantus Solostar U-100 Insulin) 30 unit subcut QHS DM 04/03/18 [History Last Taken 10/29/22] insulin lispro 100 unit/mL subcutaneous pen (Humalog KwikPen (U-100) Insulin) 8 unit subcut TID DM 04/03/18 [History Last Taken 10/30/22] promethazine 25 mg tablet 25 mg PO Q8H PRN Nausea 04/03/18 [History Last Taken Unknown] Vitamin Code 1 tab PO/SL DAILY SUPPLEMENT 10/30/22 [History Last Taken 10/30/22] alpha lipoic acid 600 mg tablet 600 mg PO QODAY SUPPLEMENT 10/30/22 [History Last Taken 10/28/22] amlodipine 10 mg tablet 10 mg PO DAILY BP 10/30/22 [History Last Taken 10/30/22] ascorbic acid (vitamin C) 500 mg tablet 500 mg PO DAILY PRN SUPPLEMENT 10/30/22 [History Last Taken 10/29/22] benfotiamine 150 mg capsule 150 mg PO DAILY SUPPLEMETN 10/30/22 [History Last Taken 10/29/22] bromfenac 0.075 % eye drops (BromSite) 1 drp LEFT EYE QHS EYE SURGERY 10/30/22 [History Last Taken 10/29/22] cetirizine 10 mg tablet 10 mg PO DAILY PRN ALLERGIES 10/30/22 [History Last Taken 10/29/22] cholecalciferol (vitamin D3) 125 mcg (5,000 unit) capsule 500 mcg PO DAILY SUPPLEMENT 10/30/22 [History Last Taken 10/29/22] levothyroxine 125 mcg tablet 125 mcg PO DAILY THYROID 10/30/22 [History Last Taken 10/30/22] losartan 50 mg tablet 50 mg PO DAILY BP 10/30/22 [History Last Taken 10/29/22] melatonin 5 mg tablet 10 mg PO QHS SLEEP 10/30/22 [History Last Taken 10/29/22] ofloxacin 0.3 % eye drops 1 drp LEFT EYE 4X/DAY EYE SURGERY 10/30/22 [History Last Taken 10/30/22] polyethylene glycol 3350 17 gram/dose oral powder (Miralax) 17 g PO DAILY PRN Constipation 10/30/22 [History Last Taken 10/27/22] sucralfate 1 gram tablet 1 g PO DAILY PRN Stomach Upset 10/30/22 [History Last Taken 10/29/22] vitamin K2 100 mcg capsule 200 mcg PO DAILY SUPPLEMENT 10/30/22 [History Last Taken 10/29/22] Allergy/AdvReac Type Severity Reaction Status Date / Time chlorhexidine Allergy Rash Verified 10/30/22 11:26 Environmental Allergies: Allergy NEEDS Verified 10/30/22 11:26 Uncoded FOLLOW-UP [pine] Family History Mother Diabetes Anemia Asthma Bleeding disorder History of blood transfusion History of blood clots Depression Heart disease Hypertension High cholesterol Respiratory disease Hyperthyroidism Grandmother Depression Surgical History History of shoulder surgery Social History Smoking Status: Never smoker alcohol intake: current alcohol intake frequency: holidays/special occasions only substance use type: does not use what type of physical activity do you participate in: none seatbelt use: always additional social history: DOES NOT USE ASPIRIN ROS ROS Narrative Did not report any lower extremity swelling, fever or chills. All other systems reviewed and essentially negative as above in the body of the history. Vital Signs Vital Signs Vital Signs: 10/30/22 11:24 10/30/22 12:59 10/30/22 14:24 Temperature 36.1 C L Temperature Source Temporal Pulse Rate 107 H 104 H 103 H Respiratory Rate 18 18 18 Respiratory Effort Respiratory Depth Respiratory Pattern Blood Pressure 148/71 H 168/95 H 157/81 H Blood Pressure [BP] Blood Pressure Mean 96 119 106 Blood Pressure Mean [BP] Blood Pressure Source Blood Pressure Source [BP] Blood Pressure Position Blood Pressure Position [BP] Blood Pressure Location Blood Pressure Location [BP] Pulse Ox 98 98 97 Oxygen Delivery Method Room Air Room Air Room Air 10/30/22 14:55 10/30/22 15:46 10/30/22 16:34 Temperature 36.1 C L 36.8 C Temperature Source Temporal Oral Pulse Rate 97 102 H Respiratory Rate 17 15 Respiratory Effort Respiratory Depth Respiratory Pattern Blood Pressure 168/84 H 161/99 H Blood Pressure [BP] Blood Pressure Mean 112 119 Blood Pressure Mean [BP] Blood Pressure Source Monitor Blood Pressure Source [BP] Blood Pressure Position Semi-Fowlers Blood Pressure Position [BP] Blood Pressure Location Right Arm Blood Pressure Location [BP] Pulse Ox 98 97 96 Oxygen Delivery Method Room Air Room Air Room Air 10/30/22 16:42 10/30/22 16:51 10/30/22 16:58 Temperature Temperature Source Pulse Rate 101 H 106 H Respiratory Rate Respiratory Effort Respiratory Depth Respiratory Pattern Blood Pressure 152/71 H 175/75 H Blood Pressure [BP] 177/86 H Blood Pressure Mean Blood Pressure Mean [BP] 116 Blood Pressure Source Blood Pressure Source [BP] Monitor Blood Pressure Position Blood Pressure Position [BP] Semi-Fowlers Blood Pressure Location Blood Pressure Location [BP] Right Arm Pulse Ox Oxygen Delivery Method 10/30/22 17:07 10/30/22 15:50 Temperature Temperature Source Pulse Rate 114 H Respiratory Rate Respiratory Effort Normal Non-Labored Respiratory Depth Normal Respiratory Pattern Normal Blood Pressure 174/106 H Blood Pressure [BP] Blood Pressure Mean Blood Pressure Mean [BP] Blood Pressure Source Blood Pressure Source [BP] Blood Pressure Position Blood Pressure Position [BP] Blood Pressure Location Blood Pressure Location [BP] Pulse Ox Oxygen Delivery Method Room Air Weight Weight: 106.5 kg Body Mass Index (BMI) 39.0 Physical Exam Narrative General exam. Middle-aged woman, obese, not in obvious distress HEENT. The eye shield over the left eye. Neck. Neck is supple Heart. First and second heart sounds heard no murmurs. [employer]. Conscious alert and oriented x3. Extremities. No pedal edema. Results Medical Records Data Attestation: I reviewed the patient's medical records Lab / Micro Data Attestation: I reviewed the patient's lab results. Result Diagrams: 10/30/22 12:05 10/30/22 12:05 Labs: Laboratory Results - last 24 hr 10/30/22 12:05: WBC 8.7, RBC 4.35, Hgb 12.5, Hct 37.6, MCV 86.4, MCH 28.7, MCHC 33.2, RDW Std Deviation 44.4 H, RDW Coeff of Robyn 14.1, Plt Count 321, MPV 10.5, Immature Gran % (Auto) 0.200, Neut % (Auto) 70.1 H, Lymph % (Auto) 21.3, [place] % (Auto) 6.9, Eos % (Auto) 0.8, Baso % (Auto) 0.7, Absolute Neuts (auto) 6.1, Absolute Lymphs (auto) 1.85, Nucleated RBC % 0 10/30/22 12:05: Sodium 131 L, Potassium 4.3, Chloride 100, Carbon Dioxide 26.0, Anion Gap 5, BUN 22 H, Creatinine 1.36 H, Estim Creat Clear Calc 41.07, Est GFR (MDRD) Af Amer 51 L, Est GFR (MDRD) Non-Af 43 L, BUN/Creatinine Ratio 16.2, Glucose 380 H, Calcium 9.2, Troponin I High Sens 6546 H* 10/30/22 13:19: PT 13.3, INR 1.0, APTT 26.9 10/30/22 14:20: Troponin I High Sens 6232 H* 10/30/22 16:16: POC Glucose 343 H 10/30/22 18:26: Troponin I High Sens 5661 H* 10/30/22 19:49: APTT 56.9 H Radiology Impression Chest X-Ray 10/30/22 12:25 IMPRESSION: No acute abnormality is seen. Electronically Signed: Marcial Valdez MD at 12:37 EDT , Assessment & Plan Assessment/Plan (1) NSTEMI, initial episode of care: PLAN: Plan Assessment and plan 1. NSTEMI. Continue with nitroglycerin as needed. Started on heparin drip. We will continue. Cardiology consulted. We will keep n.p.o. after midnight for possible left heart catheterization. Check echocardiogram as well. Keep on telemetry. 2. Type 2 diabetes. Suspect not well controlled. Check A1c. Continue home regimen of insulin. 3. Recent cataract surgery. Continue with topical antibiotic ointment. 4. Elevated creatinine of 1.36. Suspect possible CKD and diabetic nephropathy. Will monitor. 5. Hypertensive urgency. Will add carvedilol 12.5 mg twice a day to patient's antihypertensive regimen. Charges/Coding Visit Charges Inpatient E&M: 09899 Init Hosp L3
[2022-10-30] MEDS: Insulin Glargine-YFGN 100 UNIT/ML Pen 30 UNIT SC (21:39)
[2022-10-30] MEDS: Pantoprazole Sodium 40 MG Tablet PO (21:49)
[2022-10-30] MEDS: Albuterol 2.5 MG/3 ML VIAL.NEB. INHALATION (23:02)
[2022-10-30 23:55] LABS: Bedside Glucose 307 mg/dL (74-106)
[2022-10-31] VITALS (16 sets, daily range): BP systolic 109–152; BP diastolic 60–116; PULSE 70–92; RESP 16–18; TEMP 36.1–37; O2SAT 94–99; BMI 39.7
[2022-10-31 01:59] LABS: Hematocrit 37.6 % (37-47); Hemoglobin 11.6 g/dL (12.0-15.0); Mean Corp Hgb Conc 30.9 g/dL (32-36); Mean Corpuscular Volume 90.8 fL (81-99); Mean Platelet Vol. 10.3 fl (6.2-12.0); Platelet Count 264 K/mm3 (150-450); RBC Distribution Width CV 14.1 % (11.6-14.6); RBC Distribution Width SD 47.2 fl (35.1-43.9); Red Blood Count 4.14 M/mm3 (4.2-5.4); White Blood Count 8.5 K/mm3 (4.4-11.0)
[2022-10-31 02:16] LABS: ALB/GLOB Ratio 0.8 RATIO (0.9-2.4); AST(SGOT) 64 U/L (15-37); Alanine Aminotransfer ALT/SGPT 31 U/L (13-56); Alkaline Phosphatase 150 U/L (45-117); Anion Gap 3 (5-15); BUN 24 mg/dL (7-18); BUN/Creat Ratio 20.7 RATIO (10-20); Calcium,Total 8.9 mg/dL (8.5-10.1); Chloride 104 mmol/L (98-107); Creatinine, Serum 1.16 mg/dL (0.55-1.02); EST Glomerular Filtration Rate 51 mL/min (>60); Est Glom Filt Rate - Afr Amer 62 mL/min (>60); Estimated Creatinine Clearance 48.15 ml/min; Globulin 3.9 g/dL (2.2-4.2); Glucose 198 mg/dL (74-106); Potassium 4.1 mmol/L (3.5-5.1); Protein, Total 6.9 g/dL (6.4-8.2); Sodium Level 132 mmol/L (136-145)
[2022-10-31 02:21] LABS: Hemoglobin A1c 8.5 % (3.8-5.6)
[2022-10-31] MEDS: Acetaminophen 325 MG Tablet 650 MG PO (02:50)
--- NOTE | 2022-10-31 03:01 | NURSING ---
Pt reported episode of chest pain lasting 5 minute resolved before nitro given vs obtained ekg obtained. Pt denies need for nitro at this time.
--- NOTE | 2022-10-31 03:34 | NURSING ---
Dr de la garza responded to message about chest pain. reviewed ekg-no stemi order for chest xray received. pt denied need for nitro currently.
--- NOTE | 2022-10-31 05:55 | RAD_ITS ---
INDICATION: Dyspnea, cough EXAMINATION/TECHNIQUE: X-RAY - XR Chest 1 View COMPARISON: 10/30/2022. FINDINGS: LINES/DEVICES: None. LUNGS: Horizontal peripheral linear densities are seen. No focal infiltrate is identified. No evidence of a pleural effusion or a pneumothorax. MEDIASTINUM AND CARDIOVASCULAR STRUCTURES: Cardiac silhouette is normal in size and contour. Mediastinum is unremarkable. BONES AND SOFT TISSUES: No acute abnormality. RAD/Chest 1 View (Portable) IMPRESSION: Mild interstitial edema. Electronically Signed: Salvatore Gonzalez DO at 6:39 EDT ,
--- NOTE | 2022-10-31 05:55 | EKG12_ITS ---
Test Reason : CP Blood Pressure : / mmHG Vent. Rate : 088 BPM Atrial Rate : 088 BPM P-R Int : 170 ms QRS Dur : 092 ms QT Int : 340 ms P-R-T Axes : 062 079 137 degrees QTc Int : 411 ms Normal sinus rhythm Cannot rule out Anterior infarct , age undetermined Abnormal ECG When compared with ECG of 30-OCT-2022 16:03, MANUAL COMPARISON REQUIRED, DATA IS UNCONFIRMED Confirmed by KAREN PAUL, JOSLYN ([id number]), photograph editor CALOS REYES ([id number]) on 11/01/2022 7:50:18 AM Referred By: Maribel Moreon Confirmed By:JOSLYN JONES MD
[2022-10-31] MEDS: Losartan Potassium 50 MG Tablet PO (06:18)
[2022-10-31] MEDS: Carvedilol 12.5 MG Tablet PO ×2 (06:18→16:52)
[2022-10-31] MEDS: Levothyroxine 125 MCG Tablet PO (06:18)
[2022-10-31] MEDS: OFLOXACIN 5 ML DROPS 1 ML LEFT EYE ×4 (06:19→21:33)
[2022-10-31 06:51] LABS: Bedside Glucose 124 mg/dL (74-106)
[2022-10-31 08:27] LABS: Partial Thromboplast Time 48.4 Seconds (24.1-36.2)
[2022-10-31 08:39] LABS: BNP,B-Type NATRIURETIC PEPTIDE 530.9 pg/mL (0-100)
--- NOTE | 2022-10-31 09:11 | NURSING ---
This RN gave report to medical lab technician [facility] [employer]
--- NOTE | 2022-10-31 10:49 | PCM.OP.PRO ---
Procedure Report Date of Procedure: 10/31/22 Left heart catheterization; 1. Moderate sedation 2. Selective left coronary angiography 3. Selective right coronary angiography 4. Measurement of LVEDP 5. Left ventriculogram 6. Pullback pressure recorded 7. Placement of TR band to close the right radial artery arteriotomy site. Preprocedure diagnosis; 56-year-old patient who had symptoms of chronic chest pain more than a months symptoms get worse and came into the hospital he had [facility] where she been evaluated by EKG and a series of cardiac marker With elevated high sensitive troponin clinical diagnosis of non-ST elevation NE Treated with medical therapy with heparin nitroglycerin aspirin beta-ted and atorvastatin symptoms improved and symptoms of chest pain resolved Patient had long history of diabetes mellitus History of anxiety and also has cervical disc degeneration at the C4-C5 level with radiculopathy Based on her clinical presentation she was taken to the [facility] today. Consent; Risk and benefit of the procedure explained in detail to the patient she elected to proceed informed consent obtained Access; 6 [place] sheath placed in the right radial artery and a cocktail of verapamil, heparin as well as nitroglycerin was given through the sheath. Diagnostic catheter used; 1. 5 [place] catheter 2. 5 [place] pigtail catheter. Procedure in detail; Under fluoroscopic guidance we will proceed with a 5 [place] catheter advanced sending aorta cannulated the left main multiple views the left coronary system obtained Following this the same catheter was used and cannulated the ostium of the RCA and multiple views of the RCA obtained Following this we will angiographic views were studied. Hemodynamic; Moderate LV systolic function Ejection fraction in the range of 35 to 40% Anteroapical hypokinesia No systolic gradient across aortic valve. LVEDP measured 27 mmHg. Coronary angiography; 1. Left main is calcified with nonobstructive lesion involving the mid left main around 20% Left main coronary artery bifurcates into left anterior descending and the left circumflex 2. Ostial LAD had 70% stenosis Large first and second septal branches with collateralization to the RCA. Mid LAD had subtotal around 95% stenosis distal LAD had nonobstructive atherosclerosis 3. Left circumflex proximal had a 80% eccentric lesion Mid left circumflex 70% OM 2 had a distal 90% stenosis. 4. RCA mid subtotal around 99% distal RCA at the bifurcation of the RPDA and posterolateral had diffuse atherosclerosis and a 90% stenosis at the origin of the RPDA. Well collateralization was noted from the septal branches of the LAD to the right side to the RPDA. Conclusion recommendation; This 56-year-old patient with longstanding history of diabetes and longstanding history of symptoms of chest pain presented with worsening of her symptoms of chest pain patient initially thought this is gastroesophageal reflux disease/GERD Subsequent evaluation by high sensitive troponin revealed evidence of non-ST elevation NE Patient had severe multivessel CAD with moderate LV systolic dysfunction Patient has been stable clinically on the current medical treatment I discussed in detail better plan of management of this diabetic patient with moderate LV dysfunction and multivessel CAD his evaluation by cardiovascular team To discuss option of CABG We will continue on medical treatment No complication in the [facility] Maribel Moreno MD,FACC,[facility]
--- NOTE | 2022-10-31 11:05 | CASEMGMT ---
RN CM Face to Face with patient for initial transition planning/care coordination assessment. RN CM introduced self and role at [facility]. Patient lying in bed, alert and oriented, family at bedside. Patient willing to participate in assessment and is able to answer all questions appropriately. Care providers, pharmacy, and demographics verified. Patient wishes to discharge home, denies need for home health at this time. Patient states she has no further needs or concerns at this time. CM to follow for discharge planning needs that may arise. PCP: Wilfredo Specialists: pamela Ling Pharmacy: [facility] Insurance: [employer] Prescription Benefit: yes Living Will/HPOA: none, would like to complete, SW notified LNOK: brother, ANN Living Arrangements: Patient lives alone in a first floor apartment with 6 steps and railing to enter the home. Patient states she is independent at home. Transportation: self, brother and ANN DME/HHC: Patient has cane, walker, grab bars, pulse ox, and glucometer with supplies. No previous HHC or SNF. Disposition Plan: Patient to transfer to [facility] for additional surgery. Sameera DENNEY, RN, CM
[2022-10-31] MEDS: Gabapentin 300 MG Capsule PO (11:09)
[2022-10-31] MEDS: tiZANidine HCl 2 MG Tablet 4 MG PO ×4 (11:09→21:33)
[2022-10-31] MEDS: Pantoprazole Sodium 40 MG Tablet PO (11:10)
[2022-10-31 11:20] LABS: Bedside Glucose 51 mg/dL (74-106)
--- NOTE | 2022-10-31 11:50 | PCM.PN.CARD ---
Subjective Subjective Evaluated today Symptoms of chest pain resolved and improved on the current treatment. He underwent cardiac catheterization today Objective Data Vital Signs: Vital Signs Temp Pulse Resp BP Pulse Ox O2 Del Method O2 Flow Rate 97.1 F L 84 18 123/97 H 98 Nasal Cannula 3 10/31/22 11:15 10/31/22 11:15 10/31/22 11:15 10/31/22 11:15 10/31/22 11:15 10/31/22 11:15 10/31/22 11:15 Oxygen Flow Rate (L/min) 3 Oxygen Delivery Method Nasal Cannula Weight: 238 lb 15.697 oz Body Mass Index (BMI) 39.7 Intake & Output: Intake and Output for Last 24 Hours 10/29/22 10/30/22 10/31/22 23:59 23:59 23:59 Intake Total 1309 / 1609 435.85 / 435.85 Balance 1309 / 1609 435.85 / 435.85 Lab / Micro Data Result Diagrams: 10/31/22 01:50 10/31/22 01:50 Labs: Laboratory Results - last 24 hr 10/30/22 12:05: WBC 8.7, RBC 4.35, Hgb 12.5, Hct 37.6, MCV 86.4, MCH 28.7, MCHC 33.2, RDW Std Deviation 44.4 H, RDW Coeff of Robyn 14.1, Plt Count 321, MPV 10.5, Immature Gran % (Auto) 0.200, Neut % (Auto) 70.1 H, Lymph % (Auto) 21.3, [place] % (Auto) 6.9, Eos % (Auto) 0.8, Baso % (Auto) 0.7, Absolute Neuts (auto) 6.1, Absolute Lymphs (auto) 1.85, Nucleated RBC % 0 10/30/22 12:05: Sodium 131 L, Potassium 4.3, Chloride 100, Carbon Dioxide 26.0, Anion Gap 5, BUN 22 H, Creatinine 1.36 H, Estim Creat Clear Calc 41.07, Est GFR (MDRD) Af Amer 51 L, Est GFR (MDRD) Non-Af 43 L, BUN/Creatinine Ratio 16.2, Glucose 380 H, Calcium 9.2, Troponin I High Sens 6546 H* 10/30/22 13:19: PT 13.3, INR 1.0, APTT 26.9 10/30/22 14:20: Troponin I High Sens 6232 H* 10/30/22 16:16: POC Glucose 343 H 10/30/22 18:26: Troponin I High Sens 5661 H* 10/30/22 19:49: APTT 56.9 H 10/30/22 21:36: POC Glucose 307 H 10/31/22 01:50: WBC 8.5, RBC 4.14 L, Hgb 11.6 L, Hct 37.6, MCV 90.8 D, MCH 28.0, MCHC 30.9 L D, RDW Std Deviation 47.2 H, RDW Coeff of Robyn 14.1, Plt Count 264, MPV 10.3 10/31/22 01:50: Sodium 132 L, Potassium 4.1, Chloride 104, Carbon Dioxide 25.0, Anion Gap 3 L, BUN 24 H, Creatinine 1.16 H, Estim Creat Clear Calc 48.15, Est GFR (MDRD) Af Amer 62, Est GFR (MDRD) Non-Af 51 L, BUN/Creatinine Ratio 20.7 H, Glucose 198 H, Calcium 8.9, Total Bilirubin 0.50, AST 64 H, ALT 31, Alkaline Phosphatase 150 H, Total Protein 6.9, Albumin 3.0 L, Globulin 3.9, Albumin/Globulin Ratio 0.8 L 10/31/22 01:50: Hemoglobin A1c 8.5 H 10/31/22 01:50: APTT 47.0 H 10/31/22 06:23: POC Glucose 124 H 10/31/22 08:06: APTT 48.4 H 10/31/22 08:06: B-Natriuretic Peptide 530.9 H 10/31/22 10:56: POC Glucose 51 L Cardiology Labs/Tests 10/30/22 12:05: WBC 8.7, RBC 4.35, Hgb 12.5, Hct 37.6, MCV 86.4, MCH 28.7, MCHC 33.2, Plt Count 321, MPV 10.5, Immature Gran % (Auto) 0.200, Neut % (Auto) 70.1 H, Lymph % (Auto) 21.3, [place] % (Auto) 6.9, Eos % (Auto) 0.8, Baso % (Auto) 0.7, Absolute Neuts (auto) 6.1, Nucleated RBC % 0 10/30/22 12:05: Sodium 131 L, Potassium 4.3, Chloride 100, Carbon Dioxide 26.0, Anion Gap 5, BUN 22 H, Creatinine 1.36 H, Est GFR (MDRD) Af Amer 51 L, Est GFR (MDRD) Non-Af 43 L, BUN/Creatinine Ratio 16.2, Glucose 380 H, Calcium 9.2 10/30/22 13:19: PT 13.3, INR 1.0, APTT 26.9 10/30/22 19:49: APTT 56.9 H 10/31/22 01:50: WBC 8.5, RBC 4.14 L, Hgb 11.6 L, Hct 37.6, MCV 90.8 D, MCH 28.0, MCHC 30.9 L D, Plt Count 264, MPV 10.3 10/31/22 01:50: Sodium 132 L, Potassium 4.1, Chloride 104, Carbon Dioxide 25.0, Anion Gap 3 L, BUN 24 H, Creatinine 1.16 H, Est GFR (MDRD) Af Amer 62, Est GFR (MDRD) Non-Af 51 L, BUN/Creatinine Ratio 20.7 H, Glucose 198 H, Calcium 8.9, Total Bilirubin 0.50 10/31/22 01:50: Hemoglobin A1c 8.5 H 10/31/22 01:50: APTT 47.0 H 10/31/22 08:06: APTT 48.4 H 10/31/22 08:06: B-Natriuretic Peptide 530.9 H Rhythm: EKG: ECHO: Stress Test: Cardiac Cath: PCI: CT Surgery: Holter monitor: EPS: PPM: CXR: Chest CT Scan: Radiography Diagnostic Testing: Radiology Impression Chest X-Ray 10/30/22 12:25 IMPRESSION: No acute abnormality is seen. Electronically Signed: Marcial Valdez MD at 12:37 EDT , Chest X-Ray 10/31/22 05:55 IMPRESSION: Mild interstitial edema. Electronically Signed: Salvatore Gonzalez DO at 6:39 EDT , Physical Exam Cardio Cardio Narrative: Alert orientated Comfortable in bed Not in acute distress Cardiovascular exam electronic device monitor normal sinus Cardiac exam S1-S2 regular. Chest exam clear to auscultation bilateral Assessment & Plan Assessment/Plan (1) Hypertension: QUALIFIERS: Hypertension type: essential hypertension Qualified Code(s): I10 - Essential (primary) hypertension (2) Diabetes type I: QUALIFIERS: Diabetes mellitus complication status: with unspecified complications Qualified Code(s): E10.8 - Type 1 diabetes mellitus with unspecified complications (3) NSTEMI, initial episode of care: PLAN: Plan 74-year-old patient with history of diabetes mellitus Hypertension Presented with symptoms of chest pain She has chronic stable angina symptoms get worse yesterday Patient thought this is calcium score of proximal disease and with time she came to the hospital She had an EKG and a series of high sensitive troponin which is abnormal and treated with medical therapy with heparin nitroglycerin drip beta-ted aspirin and atorvastatin Symptoms of chest pain improved and resolved this morning Cardiac care plan recommendations; Patient underwent cardiac catheterization which showed multivessel CAD with LV function moderate Ejection fraction in the range of 35-40% I discussed cardiac care plan we will transfer the patient for CABG evaluation Also we will continue medical therapy.
--- NOTE | 2022-10-31 12:11 | CASEMGMT ---
Tertiary facilities in-network with patient's insurance: [facility], [facility], , Carolynn, Lilian, CHRISTINA, JANIYA, James, [facility], [place].
--- NOTE | 2022-10-31 13:14 | CASEMGMT ---
Patient requested to complete advance directives. SW completed documents with patient. Copies were made an given to patient along with originals. A copy of each was also placed in patient's chart. Laney SUAREZ
--- NOTE | 2022-10-31 16:01 | PN_ITS ---
Subjective Subjective Patient seen and examined. She had no complaints. She denied any chest pain, palpitations, dizziness, nausea, vomiting or diarrhea. Review of systems is otherwise negative. She is due for cardiac cath today. Objective Data Objective Data Vital Signs: Vital Signs Temp Pulse Resp BP Pulse Ox O2 Del Method O2 Flow Rate 97.4 F L 74 18 113/70 97 Nasal Cannula 3 10/31/22 15:07 10/31/22 15:07 10/31/22 15:07 10/31/22 15:07 10/31/22 15:07 10/31/22 15:07 10/31/22 15:07 Oxygen Flow Rate (L/min) 3 Oxygen Delivery Method Nasal Cannula Weight: 238 lb 15.697 oz Body Mass Index (BMI) 39.7 Intake & Output: Intake and Output for Last 24 Hours 10/29/22 10/30/22 10/31/22 23:59 23:59 23:59 Intake Total 1309 / 1609 435.85 / 435.85 Balance 1309 / 1609 435.85 / 435.85 Lab / Micro Data Result Diagrams: 10/31/22 01:50 10/31/22 01:50 Labs: Laboratory Results - last 24 hr 10/30/22 16:16: POC Glucose 343 H 10/30/22 18:26: Troponin I High Sens 5661 H* 10/30/22 19:49: APTT 56.9 H 10/30/22 21:36: POC Glucose 307 H 10/31/22 01:50: WBC 8.5, RBC 4.14 L, Hgb 11.6 L, Hct 37.6, MCV 90.8 D, MCH 28.0, MCHC 30.9 L D, RDW Std Deviation 47.2 H, RDW Coeff of Robyn 14.1, Plt Count 264, MPV 10.3 10/31/22 01:50: Sodium 132 L, Potassium 4.1, Chloride 104, Carbon Dioxide 25.0, Anion Gap 3 L, BUN 24 H, Creatinine 1.16 H, Estim Creat Clear Calc 48.15, Est GFR (MDRD) Af Amer 62, Est GFR (MDRD) Non-Af 51 L, BUN/Creatinine Ratio 20.7 H, Glucose 198 H, Calcium 8.9, Total Bilirubin 0.50, AST 64 H, ALT 31, Alkaline Phosphatase 150 H, Total Protein 6.9, Albumin 3.0 L, Globulin 3.9, Albumin/Globulin Ratio 0.8 L 10/31/22 01:50: Hemoglobin A1c 8.5 H 10/31/22 01:50: APTT 47.0 H 10/31/22 06:23: POC Glucose 124 H 10/31/22 08:06: APTT 48.4 H 10/31/22 08:06: B-Natriuretic Peptide 530.9 H 10/31/22 10:56: POC Glucose 51 L Radiography Diagnostic Testing: Radiology Impression Echocardiogram 10/30/22 15:38 Interpretation Summary The estimated ejection fraction is 30-35 %. Reduced LV systolic function in comparison to previous echocardiogram. Anteroapical and distal septal hypokinesia Ordering Physician: Dolly Moreira Referring Physician: Maribel Moreno Performed By: Amos Stephen RCS Chest X-Ray 10/31/22 05:55 IMPRESSION: Mild interstitial edema. Electronically Signed: Salvatore Gonzalez DO at 6:39 EDT Reading Location ID and State: [facility] / [place] Tel , Service support , Physical Exam Const alert, oriented x3 and no apparent distress General Appearance: cooperative HEENT normocephalic, head/scalp atraumatic and moist oral mucous membranes HEENT Narrative: has a shield over her left eye Neck no lymphadenopathy, supple and no JVD Lymph Lymphatic: no lymphadenopathy noted and no lymphedema noted Resp Resp Narrative: mildly diminished breath sounds bibasally, no wheezes or crackles. On 3L of oxygen by nasal canula GI normal to inspection, nondistended, normoactive bowel sounds, soft to palpation, non-tender and non-distended Extremity normal capillary refill, no clubbing, cyanosis or edema and no calf tenderness Skin General Skin Exam: no breakdown Neuro CN's II-XII intact bilaterally, no focal motor deficits, no sensory deficits noted and deep tendon reflexes 2+ bilaterally Psych thought process normal and cooperative Appearance: appropriate Assessment & Plan Assessment/Plan (1) NSTEMI, initial episode of care: PLAN: Plan #Nonstemi * on heparin drip * cardiology on board * 2D echo * for cardiac cath today: showed multivessel CAD with moderate LV function. * on high intensity statin * #Type 2 diabetes mellitus * on ISS. Accuchecks ACHS * on lantus 30 units qhs * #Cataracts: s/p recent left eye surgery. Has left eye shield in place. Has topical antibiotics #Elevated Cr: Cr was 1.36, now down to 1.16. WIll monitor. #HYpertension; BP was elevated on admission. 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 Charges/Coding Visit Charges Inpatient E&M: 45247 Subs Hosp L2
[2022-10-31] MEDS: Insulin Lispro 100 UNIT/ML INSULN.PEN 8 UNIT SC (16:54)
[2022-10-31 17:45] LABS: Bedside Glucose 377 mg/dL (74-106)
[2022-10-31] MEDS: Magnesium Hydroxide 30 ML UDC PO (18:40)
[2022-10-31] MEDS: Polyethylene Glycol 3350 17 GM PACKET PO (20:12)
--- NOTE | 2022-10-31 21:24 | PCM.HOSP.N ---
Hospitalist Note Patient with elevated BS. Had low BS earlier in the day per RN report with hold on scheduled earlier long acting. Will continue with PM longacting and will add overlapping ISS in addition to the short acting scheduled regimen with x 1 20 u lispro now.
[2022-10-31] MEDS: Insulin Glargine-YFGN 100 UNIT/ML Pen 30 UNIT SC (22:14)
[2022-10-31] MEDS: Insulin Lispro 100 UNIT/ML INSULN.PEN 20 UNIT SC (22:15)
--- NOTE | 2022-10-31 22:15 | NURSING ---
This nurse informed patient of the new insulin orders ordered for her critical blood glucose level of 508. This nurse informed patient she would be getting a 1 time dose of 20u Humalog, sliding scale humalog, and her scheduled long acting insulin of 30 units. pt stated I'm not taking that much, it will kill me. Pt stated she would take 10 units short acting and her 30 units long acting.
[2022-10-31 22:16] LABS: Glucose 481 mg/dL (74-106)
[2022-11-01 01:15] LABS: Bedside Glucose 374 mg/dL (74-106)
[2022-11-01 03:02] VITALS: BMI 39.6
[2022-11-01 04:00] VITALS: BP 115/90; PULSE 80; RESP 16; TEMP 36.8; O2SAT 97
[2022-11-01 05:33] VITALS: BP 128/58
[2022-11-01 05:36] VITALS: BP 128/58; PULSE 77
[2022-11-01] MEDS: Nitroglycerin (INPATIENT USE) 0.4 MG TAB.SUBL SL (05:36)
[2022-11-01] MEDS: Acetaminophen 325 MG Tablet 650 MG PO (05:38)
--- NOTE | 2022-11-01 05:40 | EKG12_ITS ---
Test Reason : CP Blood Pressure : / mmHG Vent. Rate : 079 BPM Atrial Rate : 079 BPM P-R Int : 174 ms QRS Dur : 090 ms QT Int : 388 ms P-R-T Axes : 069 079 105 degrees QTc Int : 444 ms Normal sinus rhythm Cannot rule out Anterior infarct , age undetermined Abnormal ECG When compared with ECG of 31-OCT-2022 02:49, MANUAL COMPARISON REQUIRED, DATA IS UNCONFIRMED Confirmed by KAREN PAUL, JOSLYN ([id number]), online editor CALOS REYES ([id number]) on 11/05/2022 1:55:10 PM Referred By: Maribel Moreno Confirmed By:JOSLYN JONES MD
[2022-11-01 07:16] VITALS: O2SAT 96
[2022-11-01] MEDS: Levothyroxine 125 MCG Tablet PO (07:25)
[2022-11-01 07:46] LABS: Bedside Glucose 152 mg/dL (74-106)
[2022-11-01 08:05] VITALS: BP 159/67; PULSE 83; RESP 16; TEMP 37.2; O2SAT 98
[2022-11-01] MEDS: 0.9% Saline Lock 10 ML Syringe IV (08:09)
[2022-11-01] MEDS: Carvedilol 12.5 MG Tablet PO (08:09)
[2022-11-01 08:43] LABS: Absolute Lymphocyte Count 2.39 X10^3/uL (0.83-4.51); Absolute Neutrophil Count 5.6 X10^3/uL (2.0-7.7); Basophil# 0.06 X10^3/uL; Basophil% 0.7 % (0-1); Eosinophil# 0.22 X10^3/uL; Eosinophils% 2.4 % (0-5); Hematocrit 32.8 % (37-47); Hemoglobin 11.1 g/dL (12.0-15.0); Lymphocyte # 2.39 X10^3/ul (0.83-4.51); Lymphocyte % 26.3 % (19-41); Mean Corp Hgb Conc 33.8 g/dL (32-36); Mean Corpuscular Hgb 28.8 pg (27.0-32.0); Mean Platelet Vol. 10.3 fl (6.2-12.0); Monocyte# 0.83 X10^3/uL; Monocyte% 9.1 % (0-10); NRBC Flagged by Analyzer 0 % (0-5); Neutrophil # 5.57 X10^3/uL (2.7-7.7); Neutrophil % 61.2 % (47-70); Platelet Count 281 K/mm3 (150-450); RBC Distribution Width SD 43.1 fl (35.1-43.9); Red Blood Count 3.86 M/mm3 (4.2-5.4); White Blood Count 9.1 K/mm3 (4.4-11.0)
--- NOTE | 2022-11-01 08:55 | PCM.DC.SUM ---
Providers Date of Admission: 10/30/22 Date of Discharge: 11/01/22 Primary Care Physician: Dr. Marielle Villalobos MD Consultations 10/30/22 15:38 Consult: Cardiology Routine Consulting Provider: Lucio Heart Reason for Consult: nstemi EMERGENT Consult: No MD Notified: Yes Date Notified: 10/30/22 Time Notified: 16:03 Method of Notification: per Reason For Visit: NSTEMI Diagnosis Discharge Diagnosis (1) NSTEMI, initial episode of care: Status: Acute Code(s): I21.4 - Non-ST elevation (NSTEMI) myocardial infarction Plan #Nonstemi on heparin drip cardiology on board 2D echo for cardiac cath today: showed multivessel CAD with moderate LV function. on high intensity statin #Type 2 diabetes mellitus on ISS. Accuchecks ACHS on lantus 30 units qhs #Cataracts: s/p recent left eye surgery. Has left eye shield in place. Has topical antibiotics #Elevated Cr: Cr was 1.36, now down to 1.16. WIll monitor. #HYpertension; BP was elevated on admission. 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 Medications at Discharge Home Medications ferrous sulfate 325 mg (65 mg iron) tablet 325 mg PO DAILY SUPPLEMENT 10/31/17 tizanidine 4 mg capsule 4 mg PO Q6H SPASMS 10/31/17 fluticasone propionate 50 mcg/actuation nasal spray,suspension (Flonase Allergy Relief) 1 spray intranasal DAILY PRN ALLERGIES 11/26/17 gabapentin 300 mg capsule 300 mg PO DAILY NERVE PAIN 03/07/18 flash glucose scanning reader ([employer] Edgar 10 Day Penitas) #1 ea 04/03/18 insulin glargine 100 unit/mL (3 mL) subcutaneous pen (Lantus Solostar U-100 Insulin) 30 unit subcut QHS DM 04/03/18 insulin lispro 100 unit/mL subcutaneous pen (Humalog KwikPen (U-100) Insulin) 8 unit subcut TID DM 04/03/18 promethazine 25 mg tablet 25 mg PO Q8H PRN Nausea 04/03/18 Vitamin Code 1 tab PO/SL DAILY SUPPLEMENT 10/30/22 alpha lipoic acid 600 mg tablet 600 mg PO QODAY SUPPLEMENT 10/30/22 amlodipine 10 mg tablet 10 mg PO DAILY BP 10/30/22 ascorbic acid (vitamin C) 500 mg tablet 500 mg PO DAILY PRN SUPPLEMENT 10/30/22 benfotiamine 150 mg capsule 150 mg PO DAILY SUPPLEMETN 10/30/22 bromfenac 0.075 % eye drops (BromSite) 1 drp LEFT EYE QHS EYE SURGERY 10/30/22 cetirizine 10 mg tablet 10 mg PO DAILY PRN ALLERGIES 10/30/22 cholecalciferol (vitamin D3) 125 mcg (5,000 unit) capsule 500 mcg PO DAILY SUPPLEMENT 10/30/22 levothyroxine 125 mcg tablet 125 mcg PO DAILY THYROID 10/30/22 losartan 50 mg tablet 50 mg PO DAILY BP 10/30/22 melatonin 5 mg tablet 10 mg PO QHS SLEEP 10/30/22 ofloxacin 0.3 % eye drops 1 drp LEFT EYE 4X/DAY EYE SURGERY 10/30/22 polyethylene glycol 3350 17 gram/dose oral powder (Miralax) 17 g PO DAILY PRN Constipation 10/30/22 sucralfate 1 gram tablet 1 g PO DAILY PRN Stomach Upset 10/30/22 vitamin K2 100 mcg capsule 200 mcg PO DAILY SUPPLEMENT 10/30/22 Hospital Course Operations None Procedures 2-D Echocardiogram Summary of Care Provided Minutes Spent on Discharge: 50 Hospital Course: Patient is a 56-year-old female with a past medical history as outlined which includes type 2 diabetes melitis. She had cataract surgery on the day of admission and had left eye and subsequently developed chest pain. Her chest pain had been going on for about a week and was mainly substernal with radiation to the left upper extremity. She had thought it was due to reflux and so she had been taking omeprazole but it was not helping. She did going to the eye surgery with the symptoms but however did not tell her lead generation specialist. After surgery she mentioned it to the lead generation specialist and she was promptly sent to the ED. On admission troponins were noted to be markedly elevated in the 6000's. EKG showed no acute ST changes. She was admitted and managed for non-STEMI. Cardiology was consulted. She had 2D echo which showed EF of 30 to 35% with anterior apical and distal septal hypokinesia. Cardiac cath showed multivessel CAD with moderate left ventricular dysfunction. Recommendation was for her to be transferred to tertiary center for CABG. She was transferred to [facility] on 11/01/2022. Patient was seen and examined prior to discharge. She had no complaints. Chest pain had not recurred. Review of systems otherwise negative. Labs and vitals reviewed. Home medication reviewed and reconciled. Physical Exam Const alert, oriented x3 and no apparent distress General Appearance: cooperative and comfortable Orientation / Consciousness: awake HEENT normocephalic, head/scalp atraumatic, hearing grossly normal bilaterally and moist oral mucous membranes Mouth: oral and palatal mucosa normal Neck no lymphadenopathy, supple and no JVD Lymph Lymphatic: no lymphadenopathy noted and no lymphedema noted Resp Resp Narrative: mildly diminished breath sounds bibasally, no wheezes or crackles. On 3L of oxygen by nasal canula GI normal to inspection, nondistended, normoactive bowel sounds, soft to palpation, non-tender and non-distended Extremity normal to inspection, full ROM, normal capillary refill, no clubbing, cyanosis or edema and no calf tenderness Skin no rashes or lesions noted General Skin Exam: no breakdown Neuro oriented x3, CN's II-XII intact bilaterally, moves all extremities, no focal motor deficits, no sensory deficits noted and deep tendon reflexes 2+ bilaterally Sensorium / Orientation: awake and alert Motor Exam: strength 5/5 throughout Psych thought process normal and cooperative Appearance: appropriate Weight / BMI Weight Weight: 237 lb 14.06 oz Body Mass Index (BMI) 39.6 ABG / Lab / Microbiology Data Result Diagrams: 11/01/22 08:30 11/01/22 08:30 Laboratory: Laboratory Results - last 24 hr 10/31/22 10:56: POC Glucose 51 L 10/31/22 16:45: POC Glucose 377 H 10/31/22 21:52: Glucose 481 H* 11/01/22 00:54: POC Glucose 374 H 11/01/22 07:24: POC Glucose 152 H 11/01/22 08:30: WBC 9.1, RBC 3.86 L, Hgb 11.1 L, Hct 32.8 L, MCV 85.0 D, MCH 28.8, MCHC 33.8 D, RDW Std Deviation 43.1, RDW Coeff of Robyn 14.0, Plt Count 281, MPV 10.3, Immature Gran % (Auto) 0.300, Neut % (Auto) 61.2, Lymph % (Auto) 26.3, [place] % (Auto) 9.1, Eos % (Auto) 2.4, Baso % (Auto) 0.7, Absolute Neuts (auto) 5.6, Absolute Lymphs (auto) 2.39, Nucleated RBC % 0 Radiography Diagnostic Testing: Radiology Impression Echocardiogram 10/30/22 15:38 Interpretation Summary The estimated ejection fraction is 30-35 %. Reduced LV systolic function in comparison to previous echocardiogram. Anteroapical and distal septal hypokinesia Ordering Physician: Dolly Moreira Referring Physician: Maribel Moreno Performed By: Amos Stephen [facility] D/C Instructions Discharge Diet: 2000 Calorie Control Diet Discharge Activity: Return to Normal Activity Meaningful Use Info Meaningful Use Diagnoses (Choose all that apply): AMI AMI/Post PCI/Angioplasty Aspirin given w/in 24hrs of arrival?: Yes ASA at discharge?: No Reason ASA not ordered:: Allergy (transferred to tertiary hospital) Statins at discharge?: No Reason statins not ordered:: Drug Interaction (transferred ) Jordon/ARB at discharge?: No Reason Jordon/ARB not ordered:: Allergy (transferred) Beta Kristin at discharge?: No Reason Beta Kristin not ordered:: Allergy (transferred) Done w/ Acute WI measure.: Yes Documented LVEF (%): 35 Discharge Plan Admission Admit Date/Time: 10/30/22 15:40 Attending Provider: Torie Vizcarra Primary Care Provider: Marielle Villalobos Consulting Providers: Isabel Pierce ; Meron Barrera ; Jason Muir ; Sada Stevenson ; Иван Cooney ; Fidencio Petty ; Reinaldo Stringer ; Maribel Moreno ; Gage Figueredo ; Jimmy Rooney ; Chantal Hines ; Zelalem Valenzuela ; Amauri Card ; Alex Culp ; Hari Polk [employer] ; Isabel Callahan NP ; Cristela Huerta PA ; Dolly Moreira Discharge Orders/Prescriptions Prescriptions: No Action tizanidine 4 mg capsule 4 mg PO Q6H ferrous sulfate 325 mg (65 mg iron) tablet 325 mg PO DAILY fluticasone propionate [Flonase Allergy Relief] 50 mcg/actuation spray,suspension 1 spray INTRANASAL DAILY PRN (Reason: ALLERGIES) insulin lispro [Humalog KwikPen Insulin] 100 unit/mL insulin pen 8 unit SC TID Label Comments: + snack insulin glargine [Lantus Solostar U-100 Insulin] 100 unit/mL (3 mL) insulin pen 30 unit SC QHS promethazine 25 mg tablet 25 mg PO Q8H PRN (Reason: Nausea) (DME) flash glucose scanning reader [[employer] Edgar 10 Day Penitas] misc See Dose Instructions .ROUTE .MEDSUPPLY Qty: 1 0RF Dose Instruction: As directed Rx Instructions: As directed gabapentin 300 mg capsule 300 mg PO DAILY losartan 50 mg tablet 50 mg PO DAILY cetirizine 10 mg tablet 10 mg PO DAILY PRN (Reason: ALLERGIES) Label Comments: TAKE 1 TABLET BY MOUTH ONCE DAILY NEEDED ofloxacin 0.3 % drops 1 drp LEFT EYE 4X/DAY sucralfate 1 gram tablet 1 g PO DAILY PRN (Reason: Stomach Upset) ascorbic acid (vitamin C) 500 mg Tablet 500 mg PO DAILY PRN (Reason: SUPPLEMENT) amlodipine 10 mg tablet 10 mg PO DAILY Label Comments: TAKE 1 TABLET BY MOUTH ONCE DAILY polyethylene glycol 3350 [Miralax] 17 gram/dose Powder 17 g PO DAILY PRN (Reason: Constipation) cholecalciferol (vitamin D3) 125 mcg (5,000 unit) Capsule 500 mcg PO DAILY melatonin 5 mg Tablet 10 mg PO QHS BromSite 0.075 % Drops 1 drp LEFT EYE QHS Rx Instructions: start on first post-op day alpha lipoic acid 600 mg Tablet 600 mg PO QODAY vitamin K2 100 mcg Capsule 200 mcg PO DAILY benfotiamine 150 mg Capsule 150 mg PO DAILY Vitamin Code 1 tab PO/SL DAILY Label Comments: takes it for pernicious anemia levothyroxine 125 mcg tablet 125 mcg PO DAILY Referrals / Follow Up: Marielle Villalobos MD [Primary Care Provider] - Disposition Disposition (needs filled in before D/C Order can be placed): Acute Care Hospital Charges/Coding Visit Charges Inpatient E&M: 75076 Disch Hosp >30min
[2022-11-01 09:24] LABS: Anion Gap 5 (5-15); BUN 32 mg/dL (7-18); BUN/Creat Ratio 22.7 RATIO (10-20); Calcium,Total 8.9 mg/dL (8.5-10.1); Chloride 102 mmol/L (98-107); Creatinine, Serum 1.41 mg/dL (0.55-1.02); EST Glomerular Filtration Rate 41 mL/min (>60); Est Glom Filt Rate - Afr Amer 49 mL/min (>60); Estimated Creatinine Clearance 39.61 ml/min; Glucose 119 mg/dL (74-106); Potassium 4.2 mmol/L (3.5-5.1); Sodium Level 131 mmol/L (136-145)
[2022-11-01 13:05] LABS: Bedside Glucose 485 mg/dL (74-106)
[2022-11-01 13:05] LABS: Bedside Glucose > 500 mg/dL (74-106)
== END 2022-11-01 10:33 | disposition short-term general hospital (02) | DRG 282 ==
LOC: ED 14:16 → PCU 15:23
PROVIDERS: Family Medicine; Admitting Provider Internal Medicine; Emergency Provider Student in an Organized Health Care Education/Training Program; PCP Internal Medicine; Referring Provider Internal Medicine Interventional Cardiology; Visit Provider Student in an Organized Health Care Education/Training Program
DX: I21.4 Non-ST elevation (NSTEMI) myocardial infarction (principal); E10.21 Type 1 diabetes mellitus with diabetic nephropathy; E10.40 Type 1 diabetes mellitus with diabetic neuropathy, unspecified; E10.36 Type 1 diabetes mellitus with diabetic cataract; E10.65 Type 1 diabetes mellitus with hyperglycemia; Z79.4 Long term (current) use of insulin; I25.118 Atherosclerotic heart disease of native coronary artery with other forms of angina pectoris; I10 Essential (primary) hypertension; E78.5 Hyperlipidemia, unspecified; E03.9 Hypothyroidism, unspecified; I16.0 Hypertensive urgency; R79.89 Other specified abnormal findings of blood chemistry; E66.9 Obesity, unspecified; Z68.39 Body mass index [BMI] 39.0-39.9, adult; Z79.899 Other long term (current) drug therapy
CPT/HCPCS: 36415; 71045; 80048; 80053; 82947; 82962; 83036; 83880; 84484; 85025; 85027; 85610; 85730; 93005; 93306; 93458; 94640; 99152; 99153; 99285; J7030; J7040; Q9957; A4216; C1769; C1894; C8929; Q9967